=== PATIENT | male | born 1950 | race Caucasian/White ===

== ENCOUNTER 2016-07-03 12:53 | Emergency (ER) | payer MEDICARE ==
[2016-07-03 16:14] LABS: Hematocrit 41 % (42-52); Hemoglobin 13.2 g/dl (14.0-18.0); Mean Corpuscular HGB Conc 32 g/dl (31-36); Mean Corpuscular Hemoglobin 27 pg (27-31); Mean Corpuscular Volume 86 fL (80-94); Mean Platelet Volume 8 um3 (7.4-10.4); Red Blood Count 4.82 10^6/ul (4.0-5.4); Red Cell Distribution Width 15 % (10.5-15)
[2016-07-03 16:36] LABS: Albumin 4.5 g/dL (3.2-5.2); BUN/Creatinine Ratio 19.6 (8-20); Calcium 9.8 mg/dL (8.6-10.3); EGFR African American 99.6 (>60); EGFR Non-African American 77.4 (>60); Globulin 3.2 g/dL (2-4); Magnesium 1.8 mg/dL (1.9-2.7); Potassium 4.1 mmol/L (3.5-5.0); Total Bilirubin 0.6 mg/dL (0.2-1.0); Total Protein 7.7 g/dL (6.4-8.9)
[2016-07-03] MEDS: NS 0.9% 1000 ML* 2,000 ML IV ONE ×2 (16:53→18:23)
[2016-07-03 19:22] LABS: Budding Yeast Present (Absent); Urine Bacteria Absent (Absent); Urine Bilirubin Negative (Negative); Urine Glucose 1+(50 mg/dL) (Negative); Urine Nitrite Negative (Negative)
[2016-07-03] MEDS ORDERED: Albuterol/Ipratropium NEB.SOL* Albuterol 2.5 MG/Ipratropium 0.5 MG 3 ML INH ONE (19:32)
[2016-07-03] MEDS ORDERED: Sulfamethox/Trimethoprim DS 800/160* TAB PO ONE ×2 (19:39)
--- NOTE | 2016-07-03 19:49 | ED ---
Abhay Kwong Alok, scribed for Garry Stevenson MD on 07/03/16 at 1544 . Throat Pain/Nasal Congestion - HPI Summary HPI Summary: 66 y/o male presents to ED and c/o throat pain bilaterally starting yesterday at about 10:[address] Pt notes he experienced dysphagia due to soreness in his throat, though pain has subsided since. Pt also notes bright red hematochezia for the last three days, as well as feeling diaphoretic. Pt also notes some cramping abdominal pain and dysuria for the last month. Denies epigastric pain. Denies any dizziness. Pt's reports elevated BG >300 in the last several days, and states that his normal is usually in the 100s. Pt also notes he takes antacids for GERD, has a hx of hemorrhoids and DM, and has had a stomach stent in the past, but denies being on blood thinners and has no hx of ulcers. - History of Current Complaint Chief Complaint: EDGeneral Time Seen by Provider: 07/03/16 15:24 Hx Obtained From: Patient Onset/Duration: Gradual Onset, Lasting Hours, Resolved Severity: Moderate Associated Signs And Symptoms: Positive: Dysphagia Cough: None - Allergies/Home Medications Allergies/Adverse Reactions: Allergies Allergy/AdvReac Type Severity Reaction Status Date / Time Niacin Allergy Hives Verified 12/30/15 19:53 Azithromycin AdvReac Mild Itching Verified 10/03/14 16:15 PMH/Surg Hx/FS Hx/Imm Hx Endocrine/Hematology History: Reports: Hx Anticoagulant Therapy - 81 MG PO ASA, Hx Diabetes Denies: Hx Thyroid Disease Cardiovascular History: Reports: Hx Aneurysm - AAA with stent, Hx Angina, Hx Coronary Artery Disease, Hx Hypercholesterolemia - HLD, Hx Hypertension, Other Cardiovascular Problems/Disorders - ATHEROSCLEROSIS Respiratory History: Reports: Hx Chronic Obstructive Pulmonary Disease (COPD) Denies: Hx Asthma, Other Respiratory Problems/Disorders GI History: Reports: Hx Gastroesophageal Reflux Disease, Hx Hiatal Hernia Denies: Hx Ulcer History: Reports: Other Problems/Disorders - hx bladder CA Sensory History: Denies: Hx Contacts or Glasses Opthamlomology History: Denies: Hx Contacts or Glasses Neurological History: Reports: Hx Migraine Psychiatric History: Reports: Hx Anxiety, Hx Depression - Cancer History Cancer Type, Location and Year: bladder cancer - chemo - 2009 Hx Chemotherapy: Yes - BCG pt did not tolerate so it was d/c'd - Surgical History Surgery Procedure, Year, and Place: cabg x 4 vessels 2008. AAA repair with stent placement 2008. Bilateral inguinal hernia repair. Left eye surgery to repair hanging skin. SCC EXCISION RIGHT NOSE Hx Anesthesia Reactions: No - Immunization History Date of Tetanus Vaccine: Unk Date of Influenza Vaccine: Fall 2013 Infectious Disease History: No Infectious Disease History: Denies: Hx Clostridium Difficile, Hx Hepatitis, Hx Human Immunodeficiency Virus (HIV), Hx of Known/Suspected MRSA, Hx Shingles, Hx Tuberculosis, Hx Known/ Suspected VRE, Hx Known/Suspected VRSA, History Other Infectious Disease, Traveled Outside the [place] in Last 30 Days - Family History Known Family History: Positive: Cardiac Disease, Other - CANCER - Social History Alcohol Use: None Substance Use Type: Reports: None Smoking Status (MU): Former Smoker Type: Cigarettes Amount Used/How Often: 35+ years, 1ppd Have You Smoked in the Last Year: No Review of Systems Positive: Skin Diaphoresis. Negative: Fever Positive: Sore Throat, Other - throat swelling Positive: Abdominal Pain - "cramping", Other - hematochezia Positive: dysuria All Other Systems Reviewed And Are Negative: Yes Physical Exam - Summary Physical Exam Summary: General: Well-appearing, no pain distress Skin: Warm, color reflects adequate perfusion, dry Head/Face: Normal Eyes: EOMI, KWADWO ENT: Normal Neck: Supple, nontender Resp: CTA, breath present Cardio: RRR Abd: Nontender, soft, no external hemorrhoids or blood surrounding the anus visualized Bowel: Present Misc: Normal; strength/ROM intact Neuro: Normal; sens/mot intact, A&Ox3 Psych: Affect/mood appropriate Triage Information Reviewed: Yes Vital Signs On Initial Exam: Initial Vitals Temp Pulse Resp BP Pulse Ox 98.6 F 65 20 159/69 98 07/03/16 12:59 07/03/16 12:59 07/03/16 12:59 07/03/16 12:59 07/03/16 12:59 Vital Signs Reviewed: Yes - [place] Coma Scale Coma Scale Total: 15 Diagnostics - Vital Signs Vital Signs Temp Pulse Resp BP Pulse Ox 07/03/16 15:00 77 22 159/81 95 07/03/16 14:33 79 24 96 07/03/16 14:32 157/79 02/22/17 13:51 99.0 F 78 16 147/72 94 07/03/16 12:59 98.6 F 65 20 159/69 98 - Laboratory Lab Results: Lab Results 07/03/16 07/03/16 07/03/16 Range/Units 16:00 16:00 16:00 WBC 7.0 (3.5-10.8) 10^3/ul RBC 4.82 (4.0-5.4) 10^6/ul Hgb 13.2 L (14.0-18.0) g/dl Hct 41 L (42-52) % MCV 86 (80-94) fL MCH 27 (27-31) pg MCHC 32 (31-36) g/dl RDW 15 (10.5-15) % Plt Count 274 (150-450) 10^3/ul MPV 8 (7.4-10.4) um3 Neut % (Auto) 77.0 (38-83) % Lymph % (Auto) 9.7 L (25-47) % [place] % (Auto) 8.1 (1-9) % Eos % (Auto) 3.1 (0-6) % Baso % (Auto) 2.1 H (0-2) % Absolute Neuts (auto) 5.4 (1.5-7.7) 10^3/ul Absolute Lymphs (auto) 0.7 L (1.0-4.8) 10^3/ul Absolute Monos (auto) 0.6 (0-0.8) 10^3/ul Absolute Eos (auto) 0.2 (0-0.6) 10^3/ul Absolute Basos (auto) 0.1 (0-0.2) 10^3/ul Absolute Nucleated RBC 0 10^3/ul Nucleated RBC % 0 INR (Anticoag Therapy) 1.01 (0.89-1.11) APTT 32.8 (26.0-36.3) seconds Sodium 136 (133-145) mmol/L Potassium 4.1 (3.5-5.0) mmol/L Chloride 100 L (101-111) mmol/L Carbon Dioxide 28 (22-32) mmol/L Anion Gap 8 (2-11) mmol/L BUN 19 (6-24) mg/dL Creatinine 0.97 (0.67-1.17) mg/dL Est GFR ( Amer) 99.6 (>60) Est GFR (Non-Af Amer) 77.4 (>60) BUN/Creatinine Ratio 19.6 (8-20) Glucose 137 H (70-100) mg/dL Calcium 9.8 (8.6-10.3) mg/dL Magnesium 1.8 L (1.9-2.7) mg/dL Total Bilirubin 0.60 (0.2-1.0) mg/dL AST 43 H (13-39) U/L ALT 39 (7-52) U/L Alkaline Phosphatase 84 (34-104) U/L Total Creatine Kinase 99 (10-223) U/L Troponin I 0.00 (<0.04) ng/mL B-Natriuretic Peptide ( - 100) pg/mL Total Protein 7.7 (6.4-8.9) g/dL Albumin 4.5 (3.2-5.2) g/dL Globulin 3.2 (2-4) g/dL Albumin/Globulin Ratio 1.4 (1-3) Urine Color Urine Appearance Urine pH (5-9) Ur Specific [place] (1.010-1.030) Urine Protein (Negative) Urine Ketones (Negative) Urine Blood (Negative) Urine Nitrate (Negative) Urine Bilirubin (Negative) Urine Urobilinogen (Negative) Ur Leukocyte Esterase (Negative) Urine WBC (Auto) (Absent) Urine RBC (Auto) (Absent) Urine Bacteria (Absent) Urine Yeast (Absent) Urine Glucose (Negative) 07/03/16 07/03/16 Range/Units 16:00 18:55 WBC (3.5-10.8) 10^3/ul RBC (4.0-5.4) 10^6/ul Hgb (14.0-18.0) g/dl Hct (42-52) % MCV (80-94) fL MCH (27-31) pg MCHC (31-36) g/dl RDW (10.5-15) % Plt Count (150-450) 10^3/ul MPV (7.4-10.4) um3 Neut % (Auto) (38-83) % Lymph % (Auto) (25-47) % [place] % (Auto) (1-9) % Eos % (Auto) (0-6) % Baso % (Auto) (0-2) % Absolute Neuts (auto) (1.5-7.7) 10^3/ul Absolute Lymphs (auto) (1.0-4.8) 10^3/ul Absolute Monos (auto) (0-0.8) 10^3/ul Absolute Eos (auto) (0-0.6) 10^3/ul Absolute Basos (auto) (0-0.2) 10^3/ul Absolute Nucleated RBC 10^3/ul Nucleated RBC % INR (Anticoag Therapy) (0.89-1.11) APTT (26.0-36.3) seconds Sodium (133-145) mmol/L Potassium (3.5-5.0) mmol/L Chloride (101-111) mmol/L Carbon Dioxide (22-32) mmol/L Anion Gap (2-11) mmol/L BUN (6-24) mg/dL Creatinine (0.67-1.17) mg/dL Est GFR ( Amer) (>60) Est GFR (Non-Af Amer) (>60) BUN/Creatinine Ratio (8-20) Glucose (70-100) mg/dL Calcium (8.6-10.3) mg/dL Magnesium (1.9-2.7) mg/dL Total Bilirubin (0.2-1.0) mg/dL AST (13-39) U/L ALT (7-52) U/L Alkaline Phosphatase (34-104) U/L Total Creatine Kinase (10-223) U/L Troponin I (<0.04) ng/mL B-Natriuretic Peptide 42 ( - 100) pg/mL Total Protein (6.4-8.9) g/dL Albumin (3.2-5.2) g/dL Globulin (2-4) g/dL Albumin/Globulin Ratio (1-3) Urine Color Yellow Urine Appearance Cloudy Urine pH 6.0 (5-9) Ur Specific [place] 1.019 (1.010-1.030) Urine Protein 1+(30 mg/dl) H (Negative) Urine Ketones Negative (Negative) Urine Blood Negative (Negative) Urine Nitrate Negative (Negative) Urine Bilirubin Negative (Negative) Urine Urobilinogen Negative (Negative) Ur Leukocyte Esterase 2+ H (Negative) Urine WBC (Auto) 3+(>20/hpf) H (Absent) Urine RBC (Auto) 2+(6-10/hpf) H (Absent) Urine Bacteria Absent (Absent) Urine Yeast Present H (Absent) Urine Glucose 1+(50 mg/dl) H (Negative) Result Diagrams: 07/03/16 16:00 07/03/16 16:00 Lab Statement: Any lab studies that have been ordered have been reviewed, and results considered in the medical decision making process. - EKG 13:06 Cardiac Rate: NL EKG Rhythm: Sinus Rhythm Ectopy: None EKG Interpretation: TWI in the lateral leads EENT Course/Dx - Course Assessment/Plan: NO BMS IN ED. FEELS WELL IN ED. DISCUSSED RESULTS WITH PATIENT. NL BP IN ED. RX BACTRIM FOR UTI. F/U PMD, RETURN IF WORSE. DISCHARGE HOME STABLE. - Diagnoses Provider Diagnoses: GI bleed, UTI (urinary tract infection) Discharge - Discharge Plan Condition: Stable Disposition: HOME Prescriptions: Sulfamethox/Trimethoprim DS* [Bactrim DS 800/160 TAB*] 1 tab PO BID #18 tab Patient Education Materials: Gastrointestinal Bleeding (ED), Urinary Tract Infection in Men (ED) Referrals: Edyta Best [Primary Care Provider] - Additional Instructions: FOLLOW UP WITH YOUR PRIMARY CARE DOCTOR. RETURN TO THE EMERGENCY DEPARTMENT FOR ANY WORSENING OF YOUR CONDITION; INCREASED BLEEDING, YOU FEEL LIKE YOU ARE GOING TO PASS OUT, YOU FEEL ILL OR QUESTIONS OR CONCERNS. The documentation as recorded by the Abhay rangel Alok accurately reflects the service I personally performed and the decisions made by me, Garry Stevenson MD.
[2016-07-03 20:28] VITALS: BP 117/60
== END 2016-07-03 20:27 | disposition home or self-care (01) ==
LOC: ED 12:53
DX: K92.2 Gastrointestinal hemorrhage, unspecified (principal); R13.10 Dysphagia, unspecified; N39.0 Urinary tract infection, site not specified; Z87.891 Personal history of nicotine dependence; R10.9 Unspecified abdominal pain; R30.0 Dysuria
CPT/HCPCS: 36415; 80053; 81003; 81015; 82272; 82550; 83735; 83880; 84484; 85025; 85610; 85730; 87086; 93005; 99283; A9270-GY

== ENCOUNTER 2017-05-30 07:56 | Emergency (ER) | payer MEDICARE ==
[2017-05-30 10:16] VITALS: BP 125/79
--- NOTE | 2017-05-30 16:15 | ED ---
Kary Kwong Julia, scribed for Zeny Coughlin MD on 05/30/17 at 0954 . Complex/Multi-Sys Presentation - HPI Summary HPI Summary: This patient is a 67 year old M presenting to [facility] complaining of external hemorrhoids beginning at 05/23/17. Patient reports rectal pain. The patient rates the pain 8/10 in severity. Patient denies constipation, headache, double or blurry vision, back pain, abdominal pain, ear ache, CP, SOB, or hematuria. He states this is the first instance of prolapsing hemorrhoids and that he has no yet seen a surgeon. He reports dysuria, but is not a new symptom. Patient has history of DM, HTN, and hemorrhoids. - History Of Current Complaint Chief Complaint: EDRectalPain Time Seen by Provider: 05/30/17 08:33 Hx Obtained From: Patient Onset/Duration: Lasting Days Timing: Constant Severity Currently: Moderate - 8/10 Location: Pain At: - rectum Associated Signs And Symptoms: Positive: Other - hemorrhoids Related History: Similar Episode/Diagnosed As: - hemorrhoids - Allergies/Home Medications Allergies/Adverse Reactions: Allergies Allergy/AdvReac Type Severity Reaction Status Date / Time Niacin Allergy Hives Verified 05/30/17 08:05 Azithromycin AdvReac Mild Itching Verified 05/30/17 08:05 PMH/Surg Hx/FS Hx/Imm Hx Endocrine/Hematology History: Reports: Hx Anticoagulant Therapy - 81 MG PO ASA, Hx Diabetes Denies: Hx Thyroid Disease Cardiovascular History: Reports: Hx Aneurysm - AAA with stent, Hx Angina, Hx Coronary Artery Disease, Hx Hypercholesterolemia - HLD, Hx Hypertension, Other Cardiovascular Problems/Disorders - ATHEROSCLEROSIS Respiratory History: Reports: Hx Chronic Obstructive Pulmonary Disease (COPD) Denies: Hx Asthma, Other Respiratory Problems/Disorders GI History: Reports: Hx Gastroesophageal Reflux Disease, Hx Hiatal Hernia Denies: Hx Ulcer History: Reports: Other Problems/Disorders - hx bladder CA Sensory History: Denies: Hx Contacts or Glasses Opthamlomology History: Denies: Hx Contacts or Glasses Neurological History: Reports: Hx Migraine Psychiatric History: Reports: Hx Anxiety, Hx Depression - Cancer History Cancer Type, Location and Year: bladder cancer - chemo - 2009 Hx Chemotherapy: Yes - BCG pt did not tolerate so it was d/c'd - Surgical History Surgery Procedure, Year, and Place: cabg x 4 vessels 2008. AAA repair with stent placement 2008. Bilateral inguinal hernia repair. Left eye surgery to repair hanging skin. SCC EXCISION RIGHT NOSE Hx Anesthesia Reactions: No - Immunization History Date of Tetanus Vaccine: Unk Date of Influenza Vaccine: Fall 2013 Infectious Disease History: No Infectious Disease History: Denies: Hx Clostridium Difficile, Hx Hepatitis, Hx Human Immunodeficiency Virus (HIV), Hx of Known/Suspected MRSA, Hx Shingles, Hx Tuberculosis, Hx Known/ Suspected VRE, Hx Known/Suspected VRSA, History Other Infectious Disease, Traveled Outside the [place] in Last 30 Days - Family History Known Family History: Positive: Cardiac Disease, Other - CANCER - Social History Alcohol Use: None Substance Use Type: Reports: None Smoking Status (MU): Former Smoker Type: Cigarettes Amount Used/How Often: 35+ years, 1ppd Have You Smoked in the Last Year: No Review of Systems Negative: Blurred Vision Negative: Ear Ache Negative: Chest Pain Negative: Shortness Of Breath Positive: Other - external hemorrhoids and rectal pain. Negative: Abdominal Pain Positive: dysuria. Negative: hematuria Musculoskeletal: Negative Negative: Headache All Other Systems Reviewed And Are Negative: No Physical Exam - Summary Physical Exam Summary: Appearance: Alert, conversive, nontoxic appearing Skin: Warm, dry, no mottling, no rashes, no contusions HEENT: EOMI, PERRL, moist mucous membranes Neck: No masses on the neck, supple Respiratory: Clear to auscultation, breath sounds present, no rales, no rhonchi , no wheezes Cardiovascular: RRR, pulses are symmetrical in both lower and upper extremities Abdomen: Soft, non-tender Bowel Sounds: Present Musculoskeletal: No CVA tenderness, no obvious deformity, moving all extremities in a grossly normal manner, two non thrombosed hemorrhoids exquisitely tender, rectal tenderness Neurological: A&Ox3, CN II-XII Intact, moving all extremities symmetrically Psychiatric: Normal affect and mood Vital Signs On Initial Exam: Initial Vitals Temp Pulse Resp BP Pulse Ox 98.3 F 66 17 161/90 96 05/30/17 08:05 05/30/17 08:05 05/30/17 08:05 05/30/17 08:05 05/30/17 08:05 - Cristela Coma Scale Coma Scale Total: 15 Diagnostics - Vital Signs Vital Signs Temp Pulse Resp BP Pulse Ox 05/30/17 08:05 98.3 F 66 17 161/90 96 - Laboratory Lab Statement: Any lab studies that have been ordered have been reviewed, and results considered in the medical decision making process. Complex Multi-Symp Course/Dx Course Of Treatment: Patient presented with rectal pain and two prolapsed hemorrhoids, but is otherwise non-emergent. Patient was given a prescirption for topical Lidocane for pain and has been instructed to follow up with Dr. Do and use stool softeners to avoid constipation, and tylenol for pain. - Diagnoses Provider Diagnoses: Hemorrhoids Discharge - Discharge Plan Condition: Stable Disposition: HOME Prescriptions: Lidocaine 4% GEL* [Topicaine 4% GEL*] 1 applic TOPICAL SEE INSTRUCTIONS #1 tube Patient Education Materials: Hemorrhoids (DC) Referrals: Damion Do MD [Medical Doctor] - Edyta Best [Primary Care Provider] - Additional Instructions: Please call Dr. Do for a follow up appt regarding your hemorrhoids. use stool softeners during this painful period of hemorroids. You want to avoid constipation. use Tucks or Preparation H for pain relief. you may also apply lidocaine jelly to the area for pain relief. Take tylenol and motrin for pain. The documentation as recorded by the Kary rangel Julia accurately reflects the service I personally performed and the decisions made by , Zeny Coughlin MD.
== END 2017-05-30 10:13 | disposition home or self-care (01) ==
LOC: ED 07:56
DX: K64.9 Unspecified hemorrhoids (principal); R30.0 Dysuria; Z86.79 Personal history of other diseases of the circulatory system; Z86.39 Personal history of other endocrine, nutritional and metabolic disease; Z79.01 Long term (current) use of anticoagulants; Z87.891 Personal history of nicotine dependence
CPT/HCPCS: 99282

== ENCOUNTER 2017-06-24 12:59 | Emergency (ER) | payer MEDICARE ==
[2017-06-24 16:19] LABS: Hematocrit 37 % (42-52); Hemoglobin 12.5 g/dl (14.0-18.0); Mean Corpuscular HGB Conc 34 g/dl (31-36); Mean Corpuscular Hemoglobin 29 pg (27-31); Mean Corpuscular Volume 87 fL (80-94); Mean Platelet Volume 8 um3 (7.4-10.4); Platelet Count 177 10^3/ul (150-450); Red Blood Count 4.25 10^6/ul (4.0-5.4); Red Cell Distribution Width 15 % (10.5-15); White Blood Count 4.9 10^3/ul (3.5-10.8)
--- NOTE | 2017-06-24 16:21 | ED ---
GI/ HPI - HPI Summary HPI Summary: 67-year-old male presents with possible inguinal hernia on his left side for past 2 weeks. He states the pain is worse when he ambulates or when he tries to lift something. He has history of bilateral inguinal hernia repairs with mesh many years ago. He denies any nausea or vomiting. He denies any diarrhea or blood in his stool. He states the pain comes and goes. He hasn't tried anything for his pain. He denies any groin pain. He denies any penile discharge. He denies any fever. He has not tried anything for his pain. - History of Current Complaint Chief Complaint: EDAbdPain Time Seen by Provider: 06/24/17 15:33 Stated Complaint: POSSIBLE HERNIA Pain Intensity: 4 - Allergy/Home Medications Allergies/Adverse Reactions: Allergies Allergy/AdvReac Type Severity Reaction Status Date / Time MS Niacin [Niacin] Allergy Hives Verified 05/30/17 08:05 MS Azithromycin AdvReac Mild Itching Verified 05/30/17 08:05 [Azithromycin] PMH/Surg Hx/FS Hx/Imm Hx Endocrine/Hematology History: Reports: Hx Anticoagulant Therapy - 81 MG PO ASA, Hx Diabetes Denies: Hx Thyroid Disease Cardiovascular History: Reports: Hx Aneurysm - AAA with stent, Hx Angina, Hx Coronary Artery Disease, Hx Hypercholesterolemia - HLD, Hx Hypertension, Other Cardiovascular Problems/Disorders - ATHEROSCLEROSIS Respiratory History: Reports: Hx Chronic Obstructive Pulmonary Disease (COPD) Denies: Hx Asthma, Other Respiratory Problems/Disorders GI History: Reports: Hx Gastroesophageal Reflux Disease, Hx Hiatal Hernia Denies: Hx Ulcer History: Reports: Other Problems/Disorders - hx bladder CA Sensory History: Denies: Hx Contacts or Glasses Opthamlomology History: Denies: Hx Contacts or Glasses Neurological History: Reports: Hx Migraine Psychiatric History: Reports: Hx Anxiety, Hx Depression - Cancer History Cancer Type, Location and Year: bladder cancer - chemo - 2009 Hx Chemotherapy: Yes - BCG pt did not tolerate so it was d/c'd - Surgical History Surgery Procedure, Year, and Place: cabg x 4 vessels 2008. AAA repair with stent placement 2008. Bilateral inguinal hernia repair. Left eye surgery to repair hanging skin. SCC EXCISION RIGHT NOSE Hx Anesthesia Reactions: No - Immunization History Date of Tetanus Vaccine: Unk Date of Influenza Vaccine: Fall 2013 Infectious Disease History: No Infectious Disease History: Denies: Hx Clostridium Difficile, Hx Hepatitis, Hx Human Immunodeficiency Virus (HIV), Hx of Known/Suspected MRSA, Hx Shingles, Hx Tuberculosis, Hx Known/ Suspected VRE, Hx Known/Suspected VRSA, History Other Infectious Disease, Traveled Outside the [place] in Last 30 Days - Family History Known Family History: Positive: Cardiac Disease, Other - CANCER - Social History Alcohol Use: None Substance Use Type: Reports: None Smoking Status (MU): Former Smoker Type: Cigarettes Amount Used/How Often: 35+ years, 1ppd Have You Smoked in the Last Year: No Review of Systems Negative: Fever Negative: Chest Pain Negative: Shortness Of Breath Positive: Abdominal Pain. Negative: Vomiting, Diarrhea, Nausea All Other Systems Reviewed And Are Negative: Yes Physical Exam Triage Information Reviewed: Yes Vital Signs On Initial Exam: Initial Vitals Temp Pulse Resp BP Pulse Ox 98.0 F 66 16 146/69 96 06/24/17 13:02 06/24/17 13:02 06/24/17 13:02 06/24/17 13:02 06/24/17 13:02 Vital Signs Reviewed: Yes Appearance: Positive: Well-Appearing Skin: Positive: Warm, Dry Head/Face: Positive: Normal Head/Face Inspection Eyes: Positive: Normal, Conjunctiva Clear Respiratory/Lung Sounds: Positive: Clear to Auscultation, Breath Sounds Present Cardiovascular: Positive: Normal, RRR Abdomen Description: Positive: Nontender, Soft, Other: - left inguinal tenderness, no hernia or mass felt Bowel Sounds: Positive: Present Male Genital Exam: Positive: normal genitalia, no hernia Diagnostics - Vital Signs Vital Signs Temp Pulse Resp BP Pulse Ox 06/24/17 14:35 97.5 F 67 20 151/66 92 06/24/17 13:02 98.0 F 66 16 146/69 96 - Laboratory Lab Results: Lab Results 06/24/17 Range/Units 16:00 WBC 4.9 (3.5-10.8) 10^3/ul RBC 4.25 (4.0-5.4) 10^6/ul Hgb 12.5 L (14.0-18.0) g/dl Hct 37 L (42-52) % MCV 87 (80-94) fL MCH 29 (27-31) pg MCHC 34 (31-36) g/dl RDW 15 (10.5-15) % Plt Count 177 (150-450) 10^3/ul MPV 8 (7.4-10.4) um3 Result Diagrams: 06/24/17 16:00 06/24/17 16:00 Lab Statement: Any lab studies that have been ordered have been reviewed, and results considered in the medical decision making process. - CT abd CT Interpretation: Positive (See Comments) - 1. There are bilateral fat- containing hernias but no significant bowel hernia is visualized. 2. There is been interval increase in the size of the infrarenal abdominal aortic aneurysm now measuring 5.6 x 5.7 cm in the axial plane, increased from 4.2 x 4.7 cm on the August 21, 2015 CT examination. The portal venous and delayed phase imaging suggest but do not prove a type II endoleak. Either CT aortography or catheter aortography are required for superior characterization on a nonemergent basis. 3. Hepatomegaly with likely hepatic steatosis. 4. Additional chronic and degenerative changes described in the body the report. CT Interpretation Completed By: Radiologist [facility] Course/Dx - Course Course Of Treatment: 67-year-old male presents with possible inguinal hernia on his left side for past 2 weeks. He states the pain is worse when he ambulates or when he tries to lift something. He has history of bilateral inguinal hernia repairs with mesh many years ago. He denies any nausea or vomiting. He denies any diarrhea or blood in his stool. He states the pain comes and goes. He hasn't tried anything for his pain. He denies any groin pain. He denies any penile discharge. He denies any fever. He has not tried anything for his pain. on exam tenderness left inguinal region. no hernia felt. labs wnl except for AST. will get CT due to mesh. CT shows bilateral fat hernias. will have follow up with surgery. patient understand and agrees with plan. - Diagnoses Differential Diagnoses - Male: Diverticulosis, Incarcerated Hernia, Urinary Tract Infection Provider Diagnoses: Hernia Discharge - Discharge Plan Condition: Good Disposition: HOME Patient Education Materials: Inguinal Hernia (ED) Referrals: Edyta Best [Primary Care Provider] - Christopher Velasquez MD [Medical Doctor] - Additional Instructions: Follow up with surgery Return to ED if develop severe abdominal pain or any new or worsening symptoms
[2017-06-24 16:35] LABS: EGFR Non-African American 72.8 (>60)
[2017-06-24] MEDS ORDERED: Iodixanol* (CONTRAST) 320 MG/ML 100 ML SDV IV ONE (18:01)
--- NOTE | 2017-06-24 20:00 | RAD ---
CLINICAL HISTORY: Left inguinal pain. Relevant surgical history AAA endograft stent placement and bilateral inguinal hernia repair. COMPARISON: CT abdomen pelvis August 21, 2015 TECHNIQUE: Contrast enhanced CT examination of the abdomen and pelvis from the lung bases through the initial tuberosities. The patient received 133 mL Visipaque 320 intravenously prior to imaging.The patient received oral contrast as well prior to imaging. FINDINGS: VISUALIZED LUNG BASES: The visualized lung bases are grossly clear. There is no pleural effusion. ABDOMEN AND PELVIS: The enlarged and homogenously hypodense liver measures 24.6 cm in greatest cephalocaudal dimension. There are scattered subcentimeter hypoattenuating foci, for example in the right middle lobe measuring 9 mm (image 22) that appear similar to the most recent CT examination.. The spleen, pancreas and adrenal glands are grossly normal in appearance. The gallbladder is normal. The kidneys are normal in appearance without focal mass, calcification or signs of hydronephrosis. There is a bladder diverticulum along the right lateral margin of the urinary bladder. The urinary bladder is somewhat irregular and wall thickness. The oral contrast has progressed as far as the distal small bowel. The small and large bowel are not distended. The patient's normal appendix is identified in the right lower quadrant measuring up to 5 mm in diameter (axial image 71). There is no gross retroperitoneal or mesenteric lymphadenopathy. There are bilateral fat-containing hernias. There is an abdominal aortic stent graft in place. The infrarenal abdominal aortic aneurysm measures 5.6 x 5.7 cm in the axial plane increased from 4.2 x 4.7 cm on the August 21, 2015 CT examination. There is hyperattenuating material in the aneurysmal sac that may be similar to the previous CT examination. The appearance on the delayed phase images shows the areas of hyperdensity becoming more evenly distributed in the aneurysmal sac. Degenerative changes include multilevel loss of intervertebral disc height involving the lower thoracic and lumbar spine.There are no sinister bone lesions. IMPRESSION: 1. There are bilateral fat-containing hernias but no significant bowel hernia is visualized. 2. There is been interval increase in the size of the infrarenal abdominal aortic aneurysm now measuring 5.6 x 5.7 cm in the axial plane, increased from 4.2 x 4.7 cm on the August 21, 2015 CT examination. The portal venous and delayed phase imaging suggest but do not prove a type II endoleak. Either CT aortography or catheter aortography are required for superior characterization on a nonemergent basis. 3. Hepatomegaly with likely hepatic steatosis. 4. Additional chronic and degenerative changes described in the body the report.
[2017-06-24 20:13] VITALS: BP 178/87
== END 2017-06-24 20:06 | disposition home or self-care (01) ==
LOC: ED 12:59
DX: K40.90 Unilateral inguinal hernia, without obstruction or gangrene, not specified as recurrent (principal)
CPT/HCPCS: 36415; 74177; 80053; 83605; 85027; 96374; 99282; Q9967

== ENCOUNTER 2017-08-01 15:07 | Emergency (ER) | payer MEDICARE ==
[2017-08-01] MEDS ORDERED: Morphine INJ* 4 MG/ML 1 ML SYRINGE (NEW SYRINGE VERSION) IV ONE (17:25)
[2017-08-01] MEDS ORDERED: Ondansetron INJ* 2 MG/ML VIAL IV ONE (17:26)
[2017-08-01 17:59] LABS: ABS Basophils 0 10^3/ul (0-0.2); ABS Eosinophils 0.2 10^3/ul (0-0.6); ABS Lymphocytes 0.9 10^3/ul (1.0-4.8); ABS Monocytes 0.4 10^3/ul (0-0.8); ABS Neutrophils 3.7 10^3/ul (1.5-7.7); ABS Nucleated RBC 0 10^3/ul; Eosinophil % 4.4 % (0-6); Hematocrit 37 % (42-52); Hemoglobin 12.5 g/dl (14.0-18.0); Lymphocyte % 16.6 % (25-47); Mean Corpuscular HGB Conc 33 g/dl (31-36); Mean Corpuscular Hemoglobin 29 pg (27-31); Mean Corpuscular Volume 87 fL (80-94); Nucleated Red Blood Cells % 0.1; Platelet Count 201 10^3/ul (150-450); Red Blood Count 4.31 10^6/ul (4.0-5.4); Red Cell Distribution Width 15 % (10.5-15); White Blood Count 5.3 10^3/ul (3.5-10.8)
[2017-08-01 18:12] LABS: INR 1.02 (0.77-1.02)
[2017-08-01 18:20] LABS: EGFR Non-African American 55.6 (>60)
[2017-08-01] MEDS ORDERED: Iodixanol* (CONTRAST) 320 MG/ML 100 ML SDV IV ONE (18:31)
--- NOTE | 2017-08-01 19:10 | RAD ---
HISTORY: Blunt trauma to the abdomen, subacute trauma COMPARISONS: June 24, 2017, August 21, 2015 TECHNIQUE: Multiple contiguous axial CT scans were obtained of the chest, abdomen, and pelvis after the administration of intravenous contrast. Coronal and sagittal multiplanar reformations are submitted for review.. Oral contrast was not administered. Delayed images were obtained through the abdomen and pelvis. FINDINGS: CHEST NECK AND THYROID: The lower neck and thyroid are unremarkable. CHEST WALL: There is no lower cervical, axillary, or supraclavicular lymphadenopathy by size criteria. HEART AND PERICARDIUM: Coronary and valvular cardiac calcifications are noted. AORTA AND PULMONARY VASCULATURE: The aorta and pulmonary vasculature are normal. MEDIASTINUM: There is no mediastinal lymphadenopathy by size criteria. ROZINA: There is no hilar lymphadenopathy by size criteria. AIRWAY AND ESOPHAGUS: The airway is unremarkable, without endobronchial filling defect. The esophagus is grossly normal. LUNG PARENCHYMA: There are small pulmonary parenchymal nodules demonstrating two-year stability consistent with benign nodules. PLEURA: No pleural abnormalities are noted. BONES AND SOFT TISSUES: The patient is status post median sternotomy. Mild degenerative changes are noted. ABDOMEN/PELVIS: LIVER: The liver is diffusely low in attenuation compared to the spleen. There are no focal hepatic parenchymal masses. Liver is enlarged measuring 24 centers in long axis. Simple hepatic cysts are noted. BILE DUCTS: There is no intrahepatic or extrahepatic biliary dilatation. GALLBLADDER: A gallstone is noted. There is no pericholecystic inflammatory change. PANCREAS: The pancreas is normal, without mass or ductal dilatation. SPLEEN: Normal in size and appearance. UPPER GI TRACT: Evaluation of the gastrointestinal tract is limited by incomplete gastric distention. There is a 2 cm diverticulum of the second stage of the duodenum. SMALL BOWEL & MESENTERY: The small bowel is normal in contour, course, and caliber. There is no obstruction or dilatation. COLON: The colon is normal in contour, course, caliber. There is no pericolonic inflammatory change. ADRENALS: Normal bilaterally. KIDNEYS: The kidneys are normal in shape, size, contour, and axis. There is no hydronephrosis or nephrolithiasis. BLADDER: Again noted is bladder wall thickening with a diverticulum of the right bladder. PELVIC ORGANS: The prostate gland is mildly enlarged. AORTA: The patient is status post aortic stent graft. There is residual aneurysm sac with contrast enhancement consistent with endoleak. This is similar in size to the June 24, 2012 examination. IVC: Unremarkable LYMPH NODES: There is no lymphadenopathy by size criteria. ABDOMINAL WALL: There is a fat-containing ventral hernia. There are fat-containing inguinal hernias bilaterally BONES AND SOFT TISSUES: Mild degenerative changes are noted. OTHER: There is no active arterial extravasation. IMPRESSION: 1. ATHEROSCLEROSIS. 2. CHOLELITHIASIS. 3. STATUS POST AORTIC STENT GRAFT WITH AORTIC ENDOLEAK. THE RESIDUAL ANEURYSM SAC IS STABLE FROM JUNE 24, 2017 4. DIVERTICULUM OF THE SECOND STAGE OF THE DUODENUM. 5. AGAIN NOTED IS BLADDER WALL THICKENING WITH A DIVERTICULUM OF THE BLADDER. 6. HEPATOMEGALY WITH FATTY INFILTRATION OF LIVER. 7. FAT-CONTAINING VENTRAL AND INGUINAL HERNIAS. 8. NO ACUTE CT PATHOLOGY OF THE VISUALIZED CHEST, ABDOMEN, OR PELVIS.
[2017-08-01] MEDS ORDERED: oxyCODONE/Acetamin 5/325 MG* TAB PO ONE (19:39)
[2017-08-01 19:53] VITALS: BP 144/65
--- NOTE | 2017-08-01 19:55 | ED ---
Stas Kwong Tiffany, scribed for Joseph Lugo on 08/01/17 at 1734 . Complex/Multi-Sys Presentation - HPI Summary HPI Summary: The patient is a 67 year old M presenting to [facility] complains of right chest pain and RUQ pain s/p falling on concrete one week ago. The patient rates the pain 8/10 in severity. Symptoms aggravated by touch. Symptoms alleviated by nothing. Denies dysuria and skin changes. Took ibuprofen today without relief. Takes Aspirin every day. - History Of Current Complaint Chief Complaint: EDChestWallPain Time Seen by Provider: 08/01/17 17:18 Hx Obtained From: Patient Onset/Duration: Lasting Weeks - 1 week, Still Present Timing: Constant Severity Currently: Moderate Location: Pain At: - Right chest, RUQ Aggravating Factor(s): Nothing Alleviating Factor(s): Nothing Associated Signs And Symptoms: Positive: Recent Trauma - Fell on concrete one week ago, Other - NEGATIVE: skin changes. Negative: Dysuria - Allergies/Home Medications Allergies/Adverse Reactions: Allergies Allergy/AdvReac Type Severity Reaction Status Date / Time azithromycin Allergy Itching Verified 08/01/17 15:11 niacin Allergy Hives Verified 08/01/17 15:11 PMH/Surg Hx/FS Hx/Imm Hx Previously Healthy: No Endocrine/Hematology History: Reports: Hx Anticoagulant Therapy - 81 MG PO ASA, Hx Diabetes Denies: Hx Thyroid Disease Cardiovascular History: Reports: Hx Aneurysm - AAA with stent, Hx Angina, Hx Coronary Artery Disease, Hx Hypercholesterolemia - HLD, Hx Hypertension, Other Cardiovascular Problems/Disorders - ATHEROSCLEROSIS Respiratory History: Reports: Hx Chronic Obstructive Pulmonary Disease (COPD) Denies: Hx Asthma, Other Respiratory Problems/Disorders GI History: Reports: Hx Gastroesophageal Reflux Disease, Hx Hiatal Hernia Denies: Hx Ulcer History: Reports: Other Problems/Disorders - hx bladder CA Sensory History: Denies: Hx Contacts or Glasses Opthamlomology History: Denies: Hx Contacts or Glasses Neurological History: Reports: Hx Migraine Psychiatric History: Reports: Hx Anxiety, Hx Depression - Cancer History Cancer Type, Location and Year: bladder cancer - chemo - 2009 Hx Chemotherapy: Yes - BCG pt did not tolerate so it was d/c'd - Surgical History Surgery Procedure, Year, and Place: cabg x 4 vessels 2008. AAA repair with stent placement 2008. Bilateral inguinal hernia repair. Left eye surgery to repair hanging skin. SCC EXCISION RIGHT NOSE Hx Anesthesia Reactions: No - Immunization History Date of Tetanus Vaccine: Unk Date of Influenza Vaccine: Fall 2013 Infectious Disease History: No Infectious Disease History: Denies: Hx Clostridium Difficile, Hx Hepatitis, Hx Human Immunodeficiency Virus (HIV), Hx of Known/Suspected MRSA, Hx Shingles, Hx Tuberculosis, Hx Known/ Suspected VRE, Hx Known/Suspected VRSA, History Other Infectious Disease, Traveled Outside the [place] in Last 30 Days - Family History Known Family History: Positive: Cardiac Disease, Other - CANCER - Social History Alcohol Use: None Hx Substance Use: No Substance Use Type: Reports: None Hx Tobacco Use: Yes Smoking Status (MU): Former Smoker Type: Cigarettes Amount Used/How Often: 35+ years, 1ppd Have You Smoked in the Last Year: No Review of Systems Negative: dysuria Positive: Other - Right-sided chest pain, RUQ pain Skin: Negative - Skin changes All Other Systems Reviewed And Are Negative: Yes Physical Exam - Summary Physical Exam Summary: Appearance: Well appearing, no pain distress Skin: warm, dry, reflects adequate perfusion Head/face: normal Eyes: EOMI, KWADWO ENT: normal Neck: supple, non-tender Chest: Right chest tenderness Respiratory: CTA, breath sounds present Cardiovascular: RRR, pulses symmetrical Abdomen: RUQ tenderness Bowel: present Musculoskeletal: normal, strength/ROM intact Neuro: normal, sensory motor intact, A&Ox3 Triage Information Reviewed: Yes Vital Signs On Initial Exam: Initial Vitals Temp Pulse Resp BP Pulse Ox 98.7 F 70 16 170/78 93 08/01/17 15:12 08/01/17 15:12 08/01/17 15:12 08/01/17 15:12 08/01/17 15:12 Vital Signs Reviewed: Yes Diagnostics - Vital Signs Vital Signs Temp Pulse Resp BP Pulse Ox 08/01/17 15:12 98.7 F 70 16 170/78 93 - Laboratory Lab Results: Lab Results 08/01/17 08/01/17 08/01/17 Range/Units 17:48 17:48 17:48 WBC 5.3 (3.5-10.8) 10^3/ul RBC 4.31 (4.0-5.4) 10^6/ul Hgb 12.5 L (14.0-18.0) g/dl Hct 37 L (42-52) % MCV 87 (80-94) fL MCH 29 (27-31) pg MCHC 33 (31-36) g/dl RDW 15 (10.5-15) % Plt Count 201 (150-450) 10^3/ul MPV 8.0 (7.4-10.4) um3 Neut % (Auto) 69.7 (38-83) % Lymph % (Auto) 16.6 L (25-47) % [place] % (Auto) 8.4 H (0-7) % Eos % (Auto) 4.4 (0-6) % Baso % (Auto) 0.9 (0-2) % Absolute Neuts (auto) 3.7 (1.5-7.7) 10^3/ul Absolute Lymphs (auto) 0.9 L (1.0-4.8) 10^3/ul Absolute Monos (auto) 0.4 (0-0.8) 10^3/ul Absolute Eos (auto) 0.2 (0-0.6) 10^3/ul Absolute Basos (auto) 0 (0-0.2) 10^3/ul Absolute Nucleated RBC 0 10^3/ul Nucleated RBC % 0.1 INR (Anticoag Therapy) 1.02 (0.77-1.02) APTT 35.0 (26.0-36.3) seconds Sodium 137 (133-145) mmol/L Potassium 4.0 (3.5-5.0) mmol/L Chloride 101 (101-111) mmol/L Carbon Dioxide 29 (22-32) mmol/L Anion Gap 7 (2-11) mmol/L BUN 22 (6-24) mg/dL Creatinine 1.29 H (0.67-1.17) mg/dL Est GFR ( Amer) 71.4 (>60) Est GFR (Non-Af Amer) 55.6 (>60) BUN/Creatinine Ratio 17.1 (8-20) Glucose 144 H (70-100) mg/dL Calcium 9.3 (8.6-10.3) mg/dL Total Bilirubin 0.50 (0.2-1.0) mg/dL AST 52 H (13-39) U/L ALT 48 (7-52) U/L Alkaline Phosphatase 74 (34-104) U/L Troponin I 0.00 (<0.04) ng/mL Total Protein 6.9 (6.4-8.9) g/dL Albumin 4.1 (3.2-5.2) g/dL Globulin 2.8 (2-4) g/dL Albumin/Globulin Ratio 1.5 (1-3) Lipase 22 (11.0-82.0) U/L Result Diagrams: 08/01/17 17:48 08/01/17 17:48 Lab Statement: Any lab studies that have been ordered have been reviewed, and results considered in the medical decision making process. - CT Chest/Abd/Pel CT Interpretation Completed By: Radiologist - 1. ATHEROSCLEROSIS. 2. CHOLELITHIASIS. 3. STATUS POST AORTIC STENT GRAFT WITH AORTIC ENDOLEAK. THE RESIDUAL ANEURYSM SAC IS STABLE FROM JUNE 24, 2017 4. DIVERTICULUM OF THE SECOND STAGE OF THE DUODENUM.5. AGAIN NOTED IS BLADDER WALL THICKENING WITH A DIVERTICULUM OF THE BLADDER. 6. HEPATOMEGALY WITH FATTY INFILTRATION OF LIVER. 7. FAT-CONTAINING VENTRAL AND INGUINAL HERNIAS. 8. NO ACUTE CT PATHOLOGY OF THE VISUALIZED CHEST, ABDOMEN, OR PELVIS. ED physician has reviewed this report. Re-Evaluation - Re-Evaluation First Eval Re-Evaluation Time: 19:25 Change: Unchanged Comment: Patient updated on lab and scan results. Discussed discharge. Agreeable to discharge. Complex Multi-Symp Course/Dx Course Of Treatment: 67 y/o M had a fall one week ago, complains of right-sided pain. Labs/CT scan were negative. No signs of acute pathology. Patient will be discharged with prescription and follow up from primary care provider. He is agreeable with this plan. - Diagnoses Differential Diagnoses/HQI/PQRI: Other - fall/contusion chest/fx ribs Provider Diagnoses: Fall, Contusion, Chest wall pain Discharge - Sign-Out/Discharge Documenting (check all that apply): Discharge - Discharge Plan Condition: Stable Disposition: HOME Prescriptions: Ibuprofen TAB* [Motrin TAB* 600 MG] 600 mg PO Q8H PRN #20 tab MDD 3 PRN Reason: Pain Oxycodone HCl/Acetaminophen [Percocet] 1 tab PO TID #12 tab MDD 3 Patient Education Materials: Contusion in Adults (ED), Fall Prevention (ED), Chest Wall Pain (ED) Referrals: Edyta Best [Primary Care Provider] - 3 Days Additional Instructions: Take medication as prescribed. Follow up with your primary care provider in 3 days. Return to the Emergency Department for any new or worsening symptoms. - Billing Disposition and Condition Condition: STABLE Disposition: HOME The documentation as recorded by the Stas rangel Tiffany accurately reflects the service I personally performed and the decisions made by , Joseph Lugo.
== END 2017-08-01 19:51 | disposition home or self-care (01) ==
LOC: ED 15:07
DX: S20.211A Contusion of right front wall of thorax, initial encounter (principal); R10.11 Right upper quadrant pain; R07.89 Other chest pain; Z79.01 Long term (current) use of anticoagulants; Z87.891 Personal history of nicotine dependence; W19.XXXA Unspecified fall, initial encounter; Y92.9 Unspecified place or not applicable
CPT/HCPCS: 36415; 71260; 74177; 80053; 83690; 84484; 85025; 85610; 85730; 96374; 96375; 99282; A9270-GY; J2270; J2405; Q9967

== ENCOUNTER 2017-12-21 17:44 | Inpatient (IN) | payer MEDICARE ==
[2017-12-21] MEDS ORDERED: Aspirin 81 mg CHEW TAB* 81 MG TAB.CHEW PO ONE (17:55)
[2017-12-21] MEDS ORDERED: Albuterol/Ipratropium NEB.SOL* Albuterol 2.5 MG/Ipratropium 0.5 MG 3 ML INH ONE (18:00)
--- NOTE | 2017-12-21 18:03 | ED ---
HPI Chest Pain - HPI Summary HPI Summary: This is scribe Anahy Preston documenting for attending Breann Tarango MD. This patient is a 67 year old M [facility] [place] by his with a chief complaint of chest pain described as heaviness since 17:30. gave Nitro at 17:36, with improvement of pain from an initial 10/10 to a 5/10. Patient reports tingling in the hands and feet and SOB that is worsened from baseline. Patient additionally c/o dark red blood pre rectum for the past few days. Patient denies abdominal pain. PMHx of COPD, DM, HTN, hypercholesterolemia , CAD, and aortic aneurysm. Patient is not on at home O2. Does have home nebs prn. Last blood glucose was 180 at home by pt, fingerstick. I, Dr. Tarango ,personally performed the services described in this documentation as scribed in my presence and it is both accurate and complete - History of Current Complaint Chief Complaint: EDChestPainROMI Time Seen by Provider: 12/21/17 17:51 Hx Obtained From: Patient, Family/Lead Housekeeper - Onset/Duration: Started Minutes Ago, Still Present Time of Onset: 17:30 Timing: Constant Initial Severity: Severe Current Severity: Moderate Pain Intensity: 5 Pain Scale Used: 0-10 Numeric Chest Pain Location: Left Anterior Chest Pain Radiates: No Character: Dyspnea at Rest, Heaviness Aggravating Factor(s): Nothing Alleviating Factor(s): NTG 123 - took 1 NTG at home Associated Signs and Symptoms: Positive: Chest Pain, Tingling, Shortness of Breath, Other: - bleeding per rectum - Allergy/Home Medications Allergies/Adverse Reactions: Allergies Allergy/AdvReac Type Severity Reaction Status Date / Time azithromycin Allergy Itching Verified 08/01/17 15:11 niacin Allergy Hives Verified 08/01/17 15:11 Home Medications: Home Medications Cetirizine HCl [Allergy Relief] 10 mg PO BEDTIME 12/21/17 [History Confirmed 04/28] Cholecalciferol (Vitamin D3) [Vitamin D3] 3,000 unit PO DAILY 12/21/17 [History Confirmed 12/21/17] Codeine Phosphate/Guaifenesin [Codeine/Guaifenesin 100-10 mg/5Ml] 2 teasp PO QID 12/21/17 [History Confirmed 12/21/17] Dexamethasone 0.1% OPTH.ALEE* 1 drop .SEE ORDER QID 12/21/17 [History Confirmed 12/21/17] Ferrous Sulfate 325 mg PO DAILY 12/21/17 [History Confirmed 12/21/17] Fluticasone NASAL SPRAY 50MCG* [Flonase NASAL SPRAY 50MCG*] 1 spray BOTH NARES BID 12/21/17 [History Confirmed 12/21/17] Gabapentin 300 mg PO TID 12/21/17 [History Confirmed 12/21/17] Saxagliptin HCl [Onglyza] 5 mg PO DAILY 12/21/17 [History Confirmed 12/21/17] PMH/Surg Hx/FS Hx/Imm Hx Endocrine/Hematology History: Reports: Hx Anticoagulant Therapy - 81 MG PO ASA, took this am , Hx Diabetes Denies: Hx Thyroid Disease Cardiovascular History: Reports: Hx Aneurysm - AAA with stent, Hx Angina, Hx Coronary Artery Disease - s/p CABG, Hx Hypercholesterolemia - HLD, Hx Hypertension, Other Cardiovascular Problems/Disorders - ATHEROSCLEROSIS Respiratory History: Reports: Hx Chronic Obstructive Pulmonary Disease (COPD) Denies: Hx Asthma, Other Respiratory Problems/Disorders GI History: Reports: Hx Gastroesophageal Reflux Disease, Hx Hiatal Hernia Denies: Hx Ulcer History: Reports: Other Problems/Disorders - hx bladder CA Sensory History: Denies: Hx Contacts or Glasses Opthamlomology History: Denies: Hx Contacts or Glasses Neurological History: Reports: Hx Migraine Psychiatric History: Reports: Hx Anxiety, Hx Depression - Cancer History Cancer Type, Location and Year: bladder cancer - chemo - 2009 Hx Chemotherapy: Yes - BCG pt did not tolerate so it was d/c'd - Surgical History Surgery Procedure, Year, and Place: cabg x 4 vessels 2008. AAA repair with stent placement 2008. Bilateral inguinal hernia repair. Left eye surgery to repair hanging skin. SCC EXCISION RIGHT NOSE Hx Anesthesia Reactions: No - Immunization History Date of Tetanus Vaccine: Unk Infectious Disease History: No Infectious Disease History: Denies: Hx Clostridium Difficile, Hx Hepatitis, Hx Human Immunodeficiency Virus (HIV), Hx of Known/Suspected MRSA, Hx Shingles, Hx Tuberculosis, Hx Known/ Suspected VRE, Hx Known/Suspected VRSA, History Other Infectious Disease, Traveled Outside the [place] in Last 30 Days - Family History Known Family History: Positive: Cardiac Disease, Other - CANCER - Social History Lives: With Family Alcohol Use: None Hx Substance Use: No Substance Use Type: Reports: None Hx Tobacco Use: Yes Smoking Status (MU): Former Smoker Type: Cigarettes Amount Used/How Often: 35+ years, 1ppd Have You Smoked in the Last Year: No Review of Systems Constitutional: Negative Positive: Chest Pain Positive: Shortness Of Breath Gastrointestinal: Negative Skin: Negative Positive: Paresthesia - tingling in hands and feet Psychological: Normal All Other Systems Reviewed And Are Negative: Yes Physical Exam - Summary Physical Exam Summary: Appearance: Well-appearing, moderate pain distress, well-nourished Skin: Warm, color reflects adequate perfusion, dry Head: Normal Head/Face inspection, atraumatic Eyes: Conjunctiva clear ENT: Normal inspection Neck: Supple, no nodes, no JVD Respiratory: Expiratory wheezes throughout, dyspnea at rest Cardio: RRR, No murmur, pulses normal, brisk capillary refill Abdomen: Soft, nontender Bowel sounds: Present Rectal: Prostate enlarged, no masses, bright red blood per rectum Musculoskeletal: Strength Intact/ROM intact, no calf tenderness, no edema. Psychological: Normal Neuro: Alert, muscle tone normal, no focal deficit Deneen, ED techt, is present for Rectal Exam. Triage Information Reviewed: Yes Vital Signs On Initial Exam: Initial Vitals Temp Pulse Resp BP Pulse Ox 98.7 F 82 18 158/66 98 12/21/17 17:46 12/21/17 17:46 12/21/17 17:46 12/21/17 17:46 12/21/17 17:46 Vital Signs Reviewed: Yes Diagnostics - Vital Signs Vital Signs Temp Pulse Resp BP Pulse Ox 12/21/17 17:46 98.7 F 82 18 158/66 98 - Laboratory Result Diagrams: 12/21/17 18:29 12/21/17 18:29 Lab Statement: Any lab studies that have been ordered have been reviewed, and results considered in the medical decision making process. - Radiology CXR Radiology Interpretation Completed By: Radiologist - POSTSURGICAL CHANGES AND CHRONIC BIBASILAR LINEAR DENSITIES MOST CONSISTENT WITH ATELECTASIS OR SCARRING. ED Physician has reviewed this report. - EKG 1748 Cardiac Rate: NL - 70 BPM EKG Rhythm: Sinus Rhythm ST Segment: Non-Specific - ST-T wave changes Ectopy: None EKG Interpretation: nml AVIVCT, nml QTc, nml axis, downsloping ST V5, V6 EKG Comparison: No Significant Change - compared with 07/03/16 Re-Evaluation - Re-Evaluation First Eval Re-Evaluation Time: 18:50 Change: Improved Comment: wheezes have cleared, chest pain gone at thiis moment. Pt standing to void. Advised of CTA ordered to eval hypoxia, SOB, elevated d dimer, and need for admission. Pt and agree. Chest Pain Course/Dx - Course Course Of Treatment: 67 year old M presenting to [facility] accompanied by his with a chief complaint of chest pain described as heaviness since 17:30. gave Nitro at 17:36, with improvement of pain from an initial 10/10 to a 5/10. Patient reports tingling in the hands and feet and SOB that is worsened from baseline. Patient additionally c/o dark red blood pre rectum for the past few days. Patient denies abdominal pain. Bloodwork reveals an elevated D-Dimer of 315. Stool Occult Blood is positive for blood. Initial troponin is negative. A CXR reveals: "POSTSURGICAL CHANGES AND CHRONIC BIBASILAR LINEAR DENSITIES MOST CONSISTENT WITH ATELECTASIS OR SCARRING." An EKG reveals nml AVIVCT, nml QTc, nml axis, downsloping ST V5, V6., no change c/w 07/03/16. Patient is given Zofran , Morphine, ASA 243mg,(took 1x 81 mg ASA this am) and a Duoneb treatment and IV solumedrol 125mg. A Chest CT is ordered due to elevated D-Dimer. Dr. Heath agrees to admit this patient. - Chest Pain Differential Diagnosis/HQI/PQRI: Acute [place], ACS, Aortic Aneurysm, GI Disease, Pulmonary Embolism, Other: - COPD exacerbation - Diagnoses Provider Diagnoses: Chest pain, Rectal bleeding, COPD exacerbation, Bronchospasm, Hypomagnesemia, Poorly controlled diabetes mellitus - Provider Notifications Discussed Care Of Patient With: Massiel Heath - hospitalist Time Discussed With Above Provider: 19:15 Instructed by Provider To: Admit As Inpatient Discharge - Sign-Out/Discharge Documenting (check all that apply): Patient Departure - admit - Discharge Plan Condition: Stable Disposition: ADMITTED TO [facility] - Billing Disposition and Condition Condition: STABLE Disposition: Admitted to [facility]
[2017-12-21] MEDS ORDERED: Morphine VIAL* 10 MG/ML 1 ML VIAL IV ONE (18:20)
[2017-12-21] MEDS ORDERED: Ondansetron INJ* 2 MG/ML VIAL IV ONE (18:20)
--- NOTE | 2017-12-21 18:22 | RAD ---
INDICATION: Chest pain. COMPARISON: Correlation is made with a prior chest x-ray study from December 31, 2015. TECHNIQUE: A portable view of the chest was obtained. FINDINGS: The patient appears to be status post coronary artery bypass surgery. Note is made of multiple sternal sutures. The heart is within normal limits in size. There are linear densities at both lung bases which appear unchanged from the prior exam suggestive of atelectasis or scarring. No pleural effusion is seen. IMPRESSION: POSTSURGICAL CHANGES AND CHRONIC BIBASILAR LINEAR DENSITIES MOST CONSISTENT WITH ATELECTASIS OR SCARRING.
[2017-12-21 18:36] LABS: ABS Basophils 0 10^3/ul (0-0.2); ABS Eosinophils 0.3 10^3/ul (0-0.6); ABS Lymphocytes 0.6 10^3/ul (1.0-4.8); ABS Monocytes 0.4 10^3/ul (0-0.8); ABS Neutrophils 3.5 10^3/ul (1.5-7.7); ABS Nucleated RBC 0 10^3/ul; Eosinophil % 5.7 % (0-6); Hematocrit 36 % (42-52); Hemoglobin 11.9 g/dl (14.0-18.0); Lymphocyte % 12.8 % (25-47); Mean Corpuscular HGB Conc 33 g/dl (31-36); Mean Corpuscular Hemoglobin 30 pg (27-31); Mean Corpuscular Volume 89 fL (80-94); Mean Platelet Volume 8.4 um3 (7.4-10.4); Nucleated Red Blood Cells % 0; Platelet Count 184 10^3/ul (150-450); Red Blood Count 4.03 10^6/ul (4.00-5.40); Red Cell Distribution Width 15 % (10.5-15); White Blood Count 4.9 10^3/ul (3.5-10.8)
[2017-12-21 18:56] LABS: EGFR Non-African American 53.2 (>60)
[2017-12-21] MEDS ORDERED: methylPREDNISolone 125 MG* 2 ML VIAL IV ONE (19:19)
[2017-12-21] MEDS ORDERED: Nitroglycerin TAB 0.4 MG* 0.4 MG TAB ONE (19:44)
[2017-12-21] MEDS ORDERED: Nitroglycerin 0.2 MG/HR PATCH* (5 MG) TRANSDERM ONE (19:46)
[2017-12-21] MEDS ORDERED: Nitroglycerin 2% OINT* 1 GM PAK TOPICAL ONE (19:50)
[2017-12-21] MEDS ORDERED: Dextrose 50% Syringe 50 ML* 25 GM/50 ML SYRINGE IV PUSH PRN ×2 (19:51→19:52)
[2017-12-21] MEDS ORDERED: Albuterol 2.5 MG/3 ML NEB.SOL* (0.083%) INH PRN (19:53)
[2017-12-21] MEDS ORDERED: Magnesium Sulfate IV* 2 GM in NS 0.9% 100 ML* 100 ML IV ONE (19:54)
[2017-12-21] MEDS ORDERED: Al Hydrox/Mg Hydrox/Simet LIQ* 30 ML UDC PO PRN (20:09)
[2017-12-21] MEDS ORDERED: Senna TAB PO PRN (20:09)
[2017-12-21] MEDS ORDERED: Ondansetron INJ* 2 MG/ML VIAL IV PRN (20:09)
[2017-12-21] MEDS ORDERED: Docusate CAP* 100 MG PO PRN (20:09)
[2017-12-21] MEDS ORDERED: Morphine INJ* 2 MG/ML 1 ML SYRINGE (TWO MG - NEW SYRINGE VERSION) IV PRN (21:05)
[2017-12-21] MEDS: Mometasone 220 MCG MDI INH SCH (21:20)
[2017-12-21] MEDS ORDERED: Iodixanol* (CONTRAST) 320 MG/ML 100 ML SDV IV ONE (21:22)
[2017-12-21] MEDS ORDERED: Insulin GLARGINE(*) 1 UNITS UNIT SUBCUT SCH (22:20)
[2017-12-21] MEDS: Insulin LISPRO* 1 UNITS UNIT SUBCUT SCH ×2 (22:25→23:09)
--- NOTE | 2017-12-21 22:47 | HP ---
CC: Primary care physician at the [facility] in [place]; Edyta Best* HISTORY AND PHYSICAL: DATE OF ADMISSION: 12/21/17 TIME OF EVALUATION: 1900. CHIEF COMPLAINT: Chest pain. HISTORY OF PRESENT ILLNESS: This is a 67-year-old male with past medical history of coronary artery disease, status post bypass, COPD on room air, and poorly controlled diabetes, who presents to the emergency room with acute onset of chest pain. The patient states he was riding in a car with his about 2 hours ago, around 1730 when he developed substernal chest pain, non-radiating, with shortness of breath, diaphoresis. He took a nitro and then it improved, decided to come to the emergency room for further evaluation. He states he has been felt off all day, unable to describe specifically but he has also been nauseated off and on all day. He also started coughing shortly around this chest pain episode. No URI symptoms. No fevers or chills. No weight changes. No lower extremity swelling. No changes in medications. He also has a history of hemorrhoids but noted around half an hour before his chest pain, he had 2 episodes of bright red blood when using the bathroom per rectum. He denies having a recent stress test. Otherwise review of systems negative. In the emergency room, the patient had labs, imaging. He was given Zofran, morphine, Solu-Medrol, aspirin, and DuoNeb and was referred to the hospitalist service for further evaluation. PAST MEDICAL HISTORY: 1. COPD, on room air. 2. Diabetes, on insulin. 3. History of abdominal aortic aneurysm, status post stent repair. 4. History of coronary artery disease, status post bypass. 5. Hyperlipidemia. 6. Anxiety, depression. 7. GERD. 8. History of hiatal hernia. 9. History of bladder cancer, status post chemo in 2009. 10. History of migraines. MEDICATIONS: Per the med rec: 1. Ferrous sulfate 325 mg p.o. daily. 2. Codeine guaifenesin 2 teaspoons p.o. four times a day as needed. 3. Gabapentin 300 mg p.o. t.i.d. 4. Saxagliptin 5 mg p.o. daily. 5. Flonase 1 spray both nares b.i.d. 6. Dexamethasone 1 drop to eyes four times a day. 7. Vitamin D3 of 3000 units daily. 8. Cetirizine 10 mg p.o. at bedtime. 9. Combivent 1 puff inhaled four times a day as needed. 10. Atorvastatin 80 mg p.o. daily. 11. Aspirin 81 mg daily. 12. Fenofibrate 135 mg daily. 13. Glucose chew p.o. daily as needed. 14. Aspart 40 units t.i.d. with meals. 15. Hydrochlorothiazide 25 mg p.o. daily. 16. Novolin. Per the patient, he states he is on long-acting, 100 units b.i.d. 17. Lisinopril 40 mg daily. 18. Metoprolol tartrate 100 mg p.o. b.i.d. 19. Meloxicam 50 mg daily. 20. Magnesium oxide 400 mg daily. 21. Asmanex 220 mcg inhale b.i.d. 22. Omeprazole 20 mg p.o. b.i.d. 23. Metformin 1000 mg p.o. b.i.d. ALLERGIES: 1. AZITHROMYCIN. 2. NIACIN. FAMILY HISTORY: Mother from old age. Father in his 60s from an [place]. SOCIAL HISTORY: The patient lives at home with his who is his healthcare proxy and is caring. He ambulates with a cane, he is independent with his ADLs. He quit smoking in 2008. At that time, he used to smoke cigars a pack per day for many years. No alcohol or illicit drug use. He is a retired assistant pastry chef, on disability. Code status is full code. REVIEW OF SYSTEMS: A 14-point review of systems as mentioned in the HPI. Otherwise, negative. PHYSICAL EXAMINATION GENERAL: In no acute distress. Elderly male. VITAL SIGNS: Temp 98.7, pulse rate is 80, respiratory rate is 14, oxygen saturation is 91% on 2 liters of oxygen, blood pressure is 143/58. HEENT: Head: Normocephalic. Pupils are equal and reactive. His conjunctivae are injected bilaterally. He has left lower lid drooping which is chronic. NECK: No adenopathy. No nuchal rigidity. RESPIRATORY: Bilateral expiratory wheezing, poor aeration. Prolonged expiratory phase. No increased work of breathing. CARDIAC: Regular rate and rhythm. Soft systolic murmur heard throughout. No carotid bruits. ABDOMEN: Soft, nontender, and nondistended. EXTREMITIES: Trace pedal edema. +1 DPs. NEUROLOGIC: Alert and oriented x3. No gross focal neurologic deficits. LABORATORY DATA: White count 4.9, hemoglobin 11.9, hematocrit 36, platelets 184. INR is 1. D-dimer is 315. Sodium 137, potassium 4.6, chloride 101, bicarb 28. BUN 27 and creatinine 1.34. Glucose 306. Lactic acid 1.8. Magnesium 1.7. AST is 64, ALT is 66. Troponin is 0. BNP is 99. TSH 0.94. RADIOGRAPHIC DATA: Chest x-ray, post-surgical changes and chronic bibasilar linear densities, most consistent with atelectasis or scarring. EKG shows normal sinus rhythm with nonspecific T-wave changes in the lateral leads. My encounter, when I placed my stethoscope on his chest, he began developing chest pain again. Repeat EKG shows no significant changes. ASSESSMENT: This is a 67-year-old male with past medical history of COPD and coronary artery disease, who presents to the emergency room with atypical chest pain. 1. Chest pain. Assessment: This is atypical at rest with associated symptoms, it is unclear if this is cardiac given his respiratory exam with bilateral wheezing and coughing today. He states that he normally wheezes all the time, but his thought he was wheezing louder today. Normally he does not cough. CTA was ordered by the emergency room for his minimally elevated d-dimer. Plan: We will admit him to [address] [place] [address], follow up on his CTA. We will get a handle on his COPD exacerbation, respiratory status before pursuing a stress test. We will continue his nebulizer treatments, his Asmanex and continue him on prednisone. Follow up on his CTA. Continue aspirin, trend his troponin. Considering the results, we may need to anticoagulate him to think about guaiac- positive stools. We will continue him on the baby aspirin for now. Recommend stress test as well once his respiratory status is further stabilized. 2. Positive guaiac stool. Assessment: The patient with bright red blood. No evidence per ER of hemorrhoids. His H and H is essentially unchanged from his prior H and Hs, BUN is not elevated. A question if there are internal hemorrhoids, does not seem to be diverticular bleed. We will repeat an H and H this evening and trend this further. 3. Diabetes. The patient has poorly controlled diabetes. Glucose is 300. He is on high levels of insulin at home and oral agents. Plan: We will continue his Lantus and his lispro; however, hold his oral agents as well. We may have difficulty getting this under control, with initiation of prednisone, we will try to stand top of this. 4. Renal insufficiency. Assessment: The patient with a history of an elevated creatinine in the past, but also had normal values as well this past year. His BUN is also elevated, may be slightly dry. Plan, we will hold his hydrochlorothiazide and repeat his blood work in the morning. 5. Transaminitis - Unclear the etiology. Consider holding statins if they remain elevated. Will repeat labs in AM 6. Chronic medical problems, anemia. We will check iron studies as above and continue him on his ferrous sulfate. 7. Hypertension, hyperlipidemia. Continue him on his lisinopril, his metoprolol, his baby aspirin, his atorvastatin. 8. Gastroesophageal reflux disease. Continue him on his Prilosec. 8. FEN. We will place him on a heart-healthy diet. 10. DVT prophylaxis. The patient scores high risk in the setting of his risk of bleeding. We will order SCDs for now. 11. Code status. Full code. PATIENT TIME: Greater than 50 minutes was spent doing the history and physical , half the time was spent in direct patient contact and critical care time. [id number]/[facility] #: [id number] [place]
[2017-12-21] MEDS: Gabapentin CAP(*) 300 MG PO SCH (22:50)
[2017-12-21] MEDS: Metoprolol Tartrate TAB* 100 MG TAB PO SCH (22:50)
[2017-12-21] MEDS: Omeprazole CAP* 20 MG PO SCH (22:50)
[2017-12-21] MEDS: DEXAMETHASONE 0.1% SCH (22:51)
[2017-12-21] MEDS: OPTH SCH (22:51)
[2017-12-21] MEDS: Fluticasone NASAL SPRAY 50MCG* 16 gm SPRAY BTL BOTH NARES SCH (22:52)
[2017-12-22 00:01] LABS: Hematocrit 34 % (42-52); Hemoglobin 11.2 g/dl (14.0-18.0)
[2017-12-22 06:35] LABS: EGFR Non-African American 55.6 (>60)
--- NOTE | 2017-12-22 07:45 | RAD ---
HISTORY: sob, wheezing, chest pain, inc d dimer COMPARISONS: None TECHNIQUE: Multiple contiguous axial CT scans of the chest were obtained after the administration of nonionic intravenous contrast, timed to the pulmonary arterial phase of contrast enhancement.. Coronal and sagittal multiplanar reformations are also submitted for review. FINDINGS: Evaluation is limited by suboptimal contrast opacification. The attenuation of the main pulmonary artery is between 200 -250 Hounsfield units which is of borderline but diagnostic quality for the detection of pulmonary embolism. NECK AND THYROID: The lower neck and thyroid are unremarkable. CHEST WALL: There is no lower cervical, axillary, or supraclavicular lymphadenopathy by size criteria. HEART AND PERICARDIUM: Coronary and valvular cardiac calcifications are noted. AORTA AND PULMONARY VASCULATURE: Evaluation is limited by suboptimal contrast opacification. There is no pulmonary arterial filling defect to suggest pulmonary embolism. There is no linear filling defect within the aorta to suggest aortic dissection. There is atherosclerosis of the thoracic aorta. MEDIASTINUM: There is no mediastinal lymphadenopathy by size criteria. ROZINA: There is no hilar lymphadenopathy by size criteria. AIRWAY AND ESOPHAGUS: The airway is unremarkable, without endobronchial filling defect. The esophagus is grossly normal. LUNG PARENCHYMA: The lungs are clear. PLEURA: No pleural abnormalities are noted. UPPER ABDOMEN: An aortic stent graft is noted. BONES AND SOFT TISSUES: The patient is status post median sternotomy. OTHER: None. IMPRESSION: NO PULMONARY ARTERIAL FILLING DEFECT TO SUGGEST PULMONARY EMBOLISM. ATHEROSCLEROSIS. R0
[2017-12-22] MEDS: Mometasone 220 MCG MDI INH SCH ×2 (08:10→20:56)
[2017-12-22] MEDS: Atorvastatin* 80 MG TAB PO SCH (08:45)
[2017-12-22] MEDS: Omeprazole CAP* 20 MG PO SCH (08:46)
[2017-12-22] MEDS: predniSONE TAB* 20 MG PO SCH (08:46)
[2017-12-22] MEDS: Metoprolol Tartrate TAB* 100 MG TAB PO SCH ×2 (08:46→21:45)
[2017-12-22] MEDS: Insulin LISPRO* 1 UNITS UNIT SUBCUT SCH ×7 (08:47→17:44)
[2017-12-22] MEDS: Magnesium Oxide TAB* 400 MG PO SCH (08:48)
[2017-12-22] MEDS: DEXAMETHASONE 0.1% SCH ×4 (08:50→20:24)
[2017-12-22] MEDS: OPTH SCH ×4 (08:50→20:24)
[2017-12-22] MEDS: Fluticasone NASAL SPRAY 50MCG* 16 gm SPRAY BTL BOTH NARES SCH ×2 (08:50→21:52)
[2017-12-22] MEDS: Gabapentin CAP(*) 300 MG PO SCH ×3 (10:29→21:44)
[2017-12-22] MEDS: Ferrous Sulfate TAB* 325 MG PO SCH (10:29)
[2017-12-22] MEDS: Aspirin EC TAB* 81 MG TAB.EC PO SCH (10:29)
[2017-12-22] MEDS: Insulin GLARGINE(*) 1 UNITS UNIT SUBCUT SCH ×2 (10:32→21:45)
[2017-12-22] MEDS: Lisinopril TAB* 10 MG PO SCH (10:50)
[2017-12-22 11:26] LABS: ABS Basophils 0 10^3/ul (0-0.2); ABS Eosinophils 0 10^3/ul (0-0.6); ABS Lymphocytes 0.3 10^3/ul (1.0-4.8); ABS Monocytes 0.2 10^3/ul (0-0.8); ABS Neutrophils 4.7 10^3/ul (1.5-7.7); ABS Nucleated RBC 0 10^3/ul; Eosinophil % 0 % (0-6); Hematocrit 35 % (42-52); Hemoglobin 11.3 g/dl (14.0-18.0); Lymphocyte % 5.8 % (25-47); Mean Corpuscular HGB Conc 33 g/dl (31-36); Mean Corpuscular Hemoglobin 29 pg (27-31); Mean Corpuscular Volume 89 fL (80-94); Mean Platelet Volume 8.7 um3 (7.4-10.4); Nucleated Red Blood Cells % 0; Platelet Count 161 10^3/ul (150-450); Red Blood Count 3.86 10^6/ul (4.00-5.40); Red Cell Distribution Width 15 % (10.5-15); White Blood Count 5.2 10^3/ul (3.5-10.8)
[2017-12-22] MEDS: Pantoprazole IV* 40 MG IV SCH ×2 (11:45→21:45)
[2017-12-22] MEDS ORDERED: Morphine INJ* 2 MG/ML 1 ML SYRINGE (TWO MG - NEW SYRINGE VERSION) IV PRN ×2 (16:06→18:45)
[2017-12-22] MEDS ORDERED: Acetaminophen TAB* 325 MG PO PRN (16:06)
--- NOTE | 2017-12-22 16:26 | PN ---
Subjective Date of Service: 12/22/17 Interval History: Pt seen and examined. Meds and labs reviewed. Pts stress test held until tomorrow given he ingested caffeine CC: NACP on presentation no longer present during my visit ROS: Denied JOHNSON/dizziness, F/C, N/V, CP, SOB, increased cough, sputum production , abd pain, diarrhea, constipation, dysuria, myalgias, arthralgias, throat pain , and new skin lesions. The rest of the 14 point ROS are unremarkable. PHYSICAL EXAM: GEN APPEARANCE: Awake, not in acute distress HEENT: NC/AT, PERRLA, moist oral mucosa, (-) throat erythema NECK: Soft, supple, (-) cervical LAD, (-)JVD HEART: S1S2 WNL, RRR, No MRG CHEST: CTA, BL, GAE, No W/R/R ABD: Soft, ND/NT, NABS 4x Q EXT: No C/C/E SKIN: Warm to touch PSYCH: No active psychosis, hallucinations, depression, SI/HI Objective Active Medications: Acetaminophen (Tylenol Tab*) 650 mg PO Q6H PRN PRN Reason: FEVER/PAIN Al Hydrox/Mg Hydrox/Simethicone (Maalox Plus*) 30 ml PO Q6H PRN PRN Reason: INDIGESTION Albuterol (Ventolin 2.5 Mg/3 Ml Neb.Karla*) 2.5 mg INH Q2H PRN PRN Reason: SOB/WHEEZING Albuterol/Ipratropium (Duoneb (Albuterol 2.5 Mg/Ipratropium 0.5 Mg)) 1 neb INH Q4H PRN PRN Reason: SOB/WHEEZING Aspirin (Aspirin Ec Tab*) 81 mg PO DAILY [facility] Last Admin: 12/22/17 10:29 Dose: 81 mg Atorvastatin Calcium (Lipitor*) 80 mg PO DAILY [facility] Last Admin: 12/22/17 08:45 Dose: 80 mg Dexamethasone (Dexamethasone 0.1% Opth.Karla*) 1 drop .SEE ORDER QID [facility] Last Admin: 12/22/17 13:27 Dose: Not Given Dextrose (D50w Syringe 50 Ml*) 12.5 gm IV PUSH .FOR FS < 60 - SS PRN PRN Reason: FS < 60 Docusate Sodium (Colace Cap*) 100 mg PO BID PRN PRN Reason: CONSTIPATION Last Admin: 12/21/17 22:50 Dose: 100 mg Ferrous Sulfate (Ferrous Sulfate Tab*) 325 mg PO DAILY [facility] Last Admin: 12/22/17 10:29 Dose: 325 mg Fluticasone Propionate (Flonase Nasal [place] 50mcg*) 1 spray BOTH NARES BID [facility] Last Admin: 12/22/17 08:50 Dose: Not Given Gabapentin (Neurontin Cap(*)) 300 mg PO TID [facility] Last Admin: 12/22/17 13:24 Dose: 300 mg Insulin Glargine (Lantus(*)) 88 units SUBCUT BID [facility] Last Admin: 12/22/17 10:32 Dose: 88 units Insulin Human Lispro (Humalog*) 0 units SUBCUT [facility]; Protocol Last Admin: 12/22/17 15:06 Dose: 6 units Insulin Human Lispro (Humalog*) 0 units SUBCUT AC [facility]; Protocol Last Admin: 12/22/17 13:25 Dose: 15 units Lisinopril (Prinivil Tab*) 40 mg PO DAILY [facility] Last Admin: 12/22/17 10:50 Dose: 40 mg Magnesium Oxide (Magox 400 Tab*) 400 mg PO QAM [facility] Last Admin: 12/22/17 08:48 Dose: 400 mg Metoprolol Tartrate (Lopressor Tab*) 100 mg PO BID [facility] Last Admin: 12/22/17 08:46 Dose: 100 mg Mometasone Furoate (Asmanex 220 Mcg Mdi *) 2 puff INH BID [facility]; Protocol Last Admin: 12/22/17 08:10 Dose: Not Given Morphine Sulfate (Morphine Inj ((Syringe))*) 0.5 mg IV Q4H PRN PRN Reason: PAIN Ondansetron HCl (Zofran Inj*) 4 mg IV Q4H PRN PRN Reason: NAUSEA/VOMITING Pantoprazole Sodium (Protonix Iv*) 40 mg IV BID [facility] Last Admin: 12/22/17 11:45 Dose: 40 mg Prednisone (Deltasone Tab*) 40 mg PO DAILY [facility] Last Admin: 12/22/17 08:46 Dose: 40 mg Senna (Senokot Tab*) 1 tab PO BID PRN PRN Reason: CONSTIPATION Last Admin: 12/21/17 22:50 Dose: 1 tab Vital Signs - 8 hr 0812/22/17 12/22/17 10:29 12:00 13:24 Temperature 97.8 F Pulse Rate 66 Respiratory 19 18 20 Rate Blood Pressure 143/65 (mmHg) O2 Sat by Pulse 92 Oximetry 12/22/17 12/22/17 14:50 15:48 Temperature 98.1 F Pulse Rate 66 Respiratory 20 20 Rate Blood Pressure 134/56 (mmHg) O2 Sat by Pulse 92 Oximetry Oxygen Devices in Use Now: Nasal Cannula Result Diagrams: 12/22/17 11:10 12/22/17 05:52 Microbiology and Other Data: Microbiology 12/21/17 18:05 Stool Occult Blood (SARAH) - Final Stool Assess/Plan/Problems-Billing Assessment: - Patient Problems (1) Chest pain Current Visit: Yes Status: Acute Code(s): R07.9 - CHEST PAIN, UNSPECIFIED SNOMED Code(s): 30470358 Comment: -(-) Troponins x3---no evidence of ACS -Possible CAD evaluation deferred for tomorrow given caffeine ingestion -NPO after midnight for stress test in AM -Both age-adjusted D-dimer and CTA of chest has ruled out PE (2) Guaiac + stool Current Visit: Yes Status: Acute Comment: -Otherwise brown stools -Will defer for outpt colonoscopy -Possible internal hemorrhoids?? -Stable H&H (3) Diabetes 1.5, managed as type 2 Current Visit: Yes Status: Acute Code(s): E10.9 - TYPE 1 DIABETES MELLITUS WITHOUT COMPLICATIONS SNOMED Code(s): 869025076 Comment: -Increased Lantus to 88 units SQ BID -Continue CHO-counting with ISS with CCD (Consistent CHO diet) (4) MONE (acute kidney injury) Current Visit: Yes Status: Acute Code(s): N17.9 - ACUTE KIDNEY FAILURE, UNSPECIFIED SNOMED Code(s): 48929869 Comment: -Agree with holding HCTZ -Continue watchful waiting -Consider calculating FENa and FE-Urea in AMwill send urine lytes in AM (5) Elevated LFTs Current Visit: Yes Status: Acute Code(s): R94.5 - ABNORMAL RESULTS OF LIVER FUNCTION STUDIES SNOMED Code(s): 689796018 Comment: -Chronic -Likely due to fatty liver disease due to steatohepatitis due to uncontrolled DM and other comorbidities? Previous imaging on July suggests an enlarged liver with hepatic cyst with no other focal hepatic lesionscysts are likely incidental -Send for viral hepatitis screen as ordered -May receive Tylenol for pain/fever as long as it does not exceed 2g/day (6) DVT prophylaxis Current Visit: Yes Status: Acute Code(s): WJP5803 - SNOMED Code(s): 519074501 Comment: -Continue SCDs Status and Disposition: -For PT eval
[2017-12-22] MEDS: Albuterol/Ipratropium NEB.SOL* Albuterol 2.5 MG/Ipratropium 0.5 MG 3 ML INH PRN ×2 (17:53→20:56)
[2017-12-22 18:10] LABS: ABS Basophils 0 10^3/ul (0-0.2); ABS Eosinophils 0 10^3/ul (0-0.6); ABS Lymphocytes 0.4 10^3/ul (1.0-4.8); ABS Monocytes 0.5 10^3/ul (0-0.8); ABS Neutrophils 6.1 10^3/ul (1.5-7.7); ABS Nucleated RBC 0 10^3/ul; Eosinophil % 0 % (0-6); Hematocrit 35 % (42-52); Hemoglobin 11.7 g/dl (14.0-18.0); Lymphocyte % 5.1 % (25-47); Mean Corpuscular HGB Conc 33 g/dl (31-36); Mean Corpuscular Hemoglobin 30 pg (27-31); Mean Corpuscular Volume 89 fL (80-94); Mean Platelet Volume 8.9 um3 (7.4-10.4); Nucleated Red Blood Cells % 0; Platelet Count 193 10^3/ul (150-450); Red Blood Count 3.96 10^6/ul (4.00-5.40); Red Cell Distribution Width 16 % (10.5-15)
[2017-12-22] MEDS ORDERED: Nitroglycerin TAB 0.4 MG* 0.4 MG TAB SL PRN (18:45)
[2017-12-23] MEDS: Nystatin TOP POWDER* 15 GM BTL TOPICAL SCH ×2 (02:17→09:26)
[2017-12-23] MEDS: Mometasone 220 MCG MDI INH SCH (08:29)
[2017-12-23] MEDS: DEXAMETHASONE 0.1% SCH ×2 (09:17→14:20)
[2017-12-23] MEDS: OPTH SCH ×2 (09:17→14:20)
[2017-12-23] MEDS: Fluticasone NASAL SPRAY 50MCG* 16 gm SPRAY BTL BOTH NARES SCH (09:17)
[2017-12-23] MEDS: Pantoprazole IV* 40 MG IV SCH (09:26)
[2017-12-23] MEDS ORDERED: Aminophylline IV* 25 MG/ML 10 ML VIAL ONE (10:34)
[2017-12-23] MEDS ORDERED: Regadenoson* 0.4 MG/5 ML SYRINGE ONE (10:34)
--- NOTE | 2017-12-23 13:25 | RAD ---
HISTORY: CP, negative troponins COMPARISONS: June 24, 2013 TECHNIQUE: A 1 day stress/rest myocardial perfusion study was performed, with pharmacologic stress. The stress portion was monitored by Dr. Meredith. Gated SPECT imaging was performed, with CT-based attenuation correction DOSE: Stress: Technetium 99m tetrofosmin, 25.2 millicuries, injected at 11:55 AM on December 23, 2017 Rest: Technetium 99m tetrofosmin, 10.05 millicuries, injected at 6:23 AM on December 23, 2017 Pharmacologic agent: Lexiscan FINDINGS: CARDIAC MONITORING: Nondiagnostic EKG secondary resting EKG abnormalities EF: 63% TID: (06 MOTION: Normal motion, with normal wall thickening. PERFUSION: There is a small fixed defect along the septum anteriorly. There is no reversible defect. OTHER: None IMPRESSION: SMALL FIXED DEFECT OF THE SEPTUM. NO REVERSIBLE DEFECT TO SUGGEST ISCHEMIA. ASSESSMENT: LOW RISK. Based on imaging criteria from ACC/AHA 2002. Guideline Update for the Management of Patient's with Chronic Stable Angina, table 23. Noninvasive Risk Stratification.
[2017-12-23] MEDS: Insulin LISPRO* 1 UNITS UNIT SUBCUT SCH ×4 (14:07→15:52)
[2017-12-23] MEDS: predniSONE TAB* 20 MG PO SCH (14:14)
[2017-12-23] MEDS: Atorvastatin* 80 MG TAB PO SCH (14:15)
[2017-12-23] MEDS: Gabapentin CAP(*) 300 MG PO SCH ×2 (14:15→15:49)
[2017-12-23] MEDS: Aspirin EC TAB* 81 MG TAB.EC PO SCH (14:16)
[2017-12-23] MEDS: Ferrous Sulfate TAB* 325 MG PO SCH (14:16)
[2017-12-23] MEDS: Magnesium Oxide TAB* 400 MG PO SCH (14:16)
[2017-12-23] MEDS: Lisinopril TAB* 10 MG PO SCH (14:17)
[2017-12-23] MEDS: Insulin GLARGINE(*) 1 UNITS UNIT SUBCUT SCH (14:49)
[2017-12-23] MEDS: Metoprolol Tartrate TAB* 100 MG TAB PO SCH (14:50)
[2017-12-23] MEDS ORDERED: Insulin NPH(*) 1 UNITS UNIT SUBCUT ONE (15:00)
[2017-12-23] MEDS ORDERED: Metoprolol Tartrate TAB* 100 MG TAB PO ONE (15:00)
[2017-12-23 16:04] VITALS: BP 152/66
--- NOTE | 2017-12-25 05:24 | DS ---
CC: Edyta Best NP, [facility] DISCHARGE SUMMARY: DATE OF ADMISSION: 12/21/17 DATE OF DISCHARGE: 12/23/17 PRIMARY CARE PROVIDER: Edyta Best NP, [facility]. DISCHARGE DIAGNOSES: 1. Mild chronic obstructive pulmonary disease exacerbation. 2. Chest pain, acute coronary syndrome ruled out. 3. Lower gastrointestinal bleed, likely hemorrhoidal in nature. 4. Transaminitis, likely due to fatty liver. SECONDARY DIAGNOSES: 1. Chronic obstructive pulmonary disease. 2. Type 2 diabetes. 3. History of abdominal aortic aneurysm, status post repair. 4. Coronary artery disease, status post bypass. 5. Hyperlipidemia. 6. Anxiety. 7. Depression. 8. Gastroesophageal reflux disease. 9. Hiatal hernia. 10. Bladder cancer. 11. Migraines. 12. History of tobacco abuse. MEDICATION LIST: 1. Ferrous sulfate 325 mg p.o. daily. 2. Codeine/guaifenesin 10/100 mg in 5 mL, 2 teaspoons p.o. four times a day as needed for cough. 3. Gabapentin 300 mg p.o. t.i.d. 4. Onglyza 5 mg p.o. daily. 5. Fluticasone nasal spray, 1 spray to both nares b.i.d. 6. Dexamethasone 0.1% one drop to affected eye four times a day. 7. Cholecalciferol 3000 units p.o. daily. 8. Cetirizine 10 mg p.o. at bedtime. 9. Combivent 1 puff inhaled four times a day p.r.n. shortness of breath. 10. Atorvastatin 80 mg p.o. daily. 11. Aspirin 81 mg p.o. daily. 12. Fenofibrate 145 mg p.o. daily. 13. Glucose, vitamin C 4 chewable tablets daily as needed for hypoglycemia with glucose less than 60. 14. NovoLog 50 units subcutaneous t.i.d. with meals. 15. Hydrochlorothiazide 25 mg p.o. daily. 16. Insulin NPH 100 units subcutaneously b.i.d. 17. Lisinopril 40 mg p.o. daily. 18. Metoprolol tartrate 100 mg p.o. b.i.d. 19. Magnesium oxide 400 mg p.o. q.a.m. 20. Asmanex 220 mcg inhaled b.i.d. 21. Omeprazole 20 mg p.o. b.i.d. 22. Metformin 1000 mg p.o. b.i.d. New medications: 1. Prednisone taper as follows: 40 mg p.o. daily for 3 days, then 30 mg for 3 days, 20 mg for 3 days, 10 mg for 3 days, 5 mg for 3 days, and stop. 2. Nystatin powder to anal rash b.i.d. HOSPITAL COURSE: Mr. Vicente is a 67-year-old male with a past medical history stated above that presented to the emergency room with complaints of substernal chest pain associated with shortness of breath and diaphoresis. For further details, I will refer you to his history and physical. The patient had serial troponins that were negative and a CTA of the chest that showed no pulmonary arterial filling defect to suggest pulmonary embolism. Apparently, the patient had some coffee, so his stress test had to be postponed, but on 12/23/17, he had Myoview stress test that showed a small fixed defect of the septum with no reversible defect to suggest ischemia and assessment was a low-risk stress test. This result was discussed with Cardiology (Dr. Meredith) and his recommendation was to continue current management and for the patient to follow up with his senior controls technician at the [facility]. The patient also had reported 2 episodes of bright red blood per rectum and he had no further episodes of bleeding while in the hospital. His H and H remained stable around . Stool for occult blood was positive. The recommendation for the patient to follow up with GI as an outpatient to consider colonoscopy. We believe that his bleeding is probably secondary to internal hemorrhoids. The patient was also found to have elevation of his creatinine but this appeared to be a chronic finding because his creatinine was already elevated in July. The patient's diabetes is poorly controlled with A1c of 10.3 and his glucose while in the hospital remained above 200, sometimes even above 300 despite insulin use. So, he will need further evaluation for tighter glucose management. He was also found to have transaminitis with AST of 51, ALT of 58, and this is likely secondary to fatty liver. This should be monitored as an outpatient. The patient was also found to have a mild COPD exacerbation with some chest tightness and shortness of breath. He does not appear to have a bacterial infection at this time and he responded well to steroids and he is being discharged on the steroid taper. He had an oxygen saturation of 92% on room air at rest, but dropped to 87% with exertion and required 3 L of oxygen to maintain oxygen greater than 90%. He should have his saturation checked again as an outpatient to see if he still requires oxygen supplementation. The patient is medically stable to be discharged home at this time, to follow up with Edyta Best NP, at the [facility] as an outpatient. PHYSICAL EXAMINATION: Vital Signs: Temperature 98.4, heart rate is 85, respiratory rate is 20, oxygen saturation 92% on room air, blood pressure is 152 /66. General: The patient is a pleasant obese gentleman, sitting up in bed, in no acute distress. CVS: Normal S1 and S2, regular rate and rhythm. Chest: Breath sounds bilaterally diminished with no added sounds. Abdomen is obese. Bowel sounds are present. Neuro: He is alert and oriented x3, able to move all 4 extremities. DIET: Heart healthy, consistent carb diet, avoid caffeine. ACTIVITIES: As tolerated. DISPOSITION: To home. STATUS WHILE IN THE HOSPITAL: Inpatient. Please keep in mind that this is a summarized version of this patient's hospital stay. If you need more information, please feel free to call me at or please obtain the full medical records. TIME SPENT: Approximately 45 minutes was spent to complete this discharge. [id number]/[facility] #: [id number] MTDD
== END 2017-12-23 17:10 | disposition home or self-care (01) | DRG 191 ==
LOC: ED 17:44 → MEDTELE 20:09
PROVIDERS: ADMIT Pediatrics; ATTEND Internal Medicine
DX: J44.1 Chronic obstructive pulmonary disease with (acute) exacerbation (principal); J98.11 Atelectasis; K92.1 Melena; N17.9 Acute kidney failure, unspecified; E11.65 Type 2 diabetes mellitus with hyperglycemia; I11.9 Hypertensive heart disease without heart failure; R07.9 Chest pain, unspecified; R74.0 Nonspecific elevation of levels of transaminase and lactic acid dehydrogenase [LDH]; I25.10 Atherosclerotic heart disease of native coronary artery without angina pectoris; E78.5 Hyperlipidemia, unspecified; F41.9 Anxiety disorder, unspecified; F32.9 Major depressive disorder, single episode, unspecified; K21.9 Gastro-esophageal reflux disease without esophagitis; K44.9 Diaphragmatic hernia without obstruction or gangrene; K64.8 Other hemorrhoids; R94.5 Abnormal results of liver function studies; K76.0 Fatty (change of) liver, not elsewhere classified; G43.909 Migraine, unspecified, not intractable, without status migrainosus; N28.9 Disorder of kidney and ureter, unspecified; Z87.891 Personal history of nicotine dependence; Z95.1 Presence of aortocoronary bypass graft; Z85.51 Personal history of malignant neoplasm of bladder; Z79.84 Long term (current) use of oral hypoglycemic drugs; Z79.82 Long term (current) use of aspirin; Z79.4 Long term (current) use of insulin; Z79.899 Other long term (current) drug therapy; Z88.1 Allergy status to other antibiotic agents; Z88.8 Allergy status to other drugs, medicaments and biological substances; Z82.49 Family history of ischemic heart disease and other diseases of the circulatory system
CPT/HCPCS: 36415; 71045; 71275; 78452; 80053; 80061; 82272; 82550; 82553; 82570; 82728; 83036; 83540; 83550; 83605; 83735; 83880; 84300; 84443; 84484; 84540; 85014; 85018; 85025; 85379; 85610; 85730; 86705; 86803; 86850; 86900; 86901; 87340; 93005; 93017; 94640; 99284; A9270-GY; A9502; J0280; J2270; J2405; J2785; J2930; J3475; J7512; Q9967

== ENCOUNTER → 2018-03-10 17:08 | Emergency (ER) | payer MEDICARE ==
[~2018-03-10 17:08] MED LIST: HYDROmorphone INJ* 1 MG/ML CARPUJECT SYRINGE IV ONE; HYDROmorphone INJ1* 1 MG/ML SYRINGE IV ONE; HYDROmorphone INJ1* 1 MG/ML SYRINGE ONE; Ondansetron INJ* 2 MG/ML VIAL IV ONE
--- NOTE | 2018-03-10 17:48 | ED ---
Abdominal Pain/Male - HPI Summary HPI Summary: The pt is a 68 y/o male BIBA to [facility] c/o lower abd pain since 15:00 hrs today. He notes nausea and constipation. The waves of abd pain is rated 10/10 in severity. EMS administered Zofran en route. - History of Current Complaint Chief Complaint: EDAbdPain Stated Complaint: ABD PAIN Time Seen by Provider: 03/10/18 17:26 Hx Obtained From: Patient, EMS Onset/Duration: Sudden Onset - 15:00 hrs today, Lasting Hours, Still Present Timing: Intermittent Severity Initially: Severe Severity Currently: Severe Pain Intensity: 10 Pain Scale Used: 0-10 Numeric Location: Other - Lower abdomen Associated Signs And Symptoms: Positive: Constipation, Nausea - Allergies/Home Medications Allergies/Adverse Reactions: Allergies Allergy/AdvReac Type Severity Reaction Status Date / Time azithromycin Allergy Itching Verified 03/10/18 17:24 niacin Allergy Hives Verified 03/10/18 17:24 PMH/Surg Hx/FS Hx/Imm Hx Previously Healthy: No Endocrine/Hematology History: Reports: Hx Anticoagulant Therapy - 81 MG PO ASA, took this am , Hx Diabetes Denies: Hx Thyroid Disease Cardiovascular History: Reports: Hx Aneurysm - AAA with stent, Hx Angina, Hx Coronary Artery Disease - s/p CABG, Hx Hypercholesterolemia - HLD, Hx Hypertension, Hx Myocardial Infarction, Other Cardiovascular Problems/Disorders - ATHEROSCLEROSIS Respiratory History: Reports: Hx Chronic Obstructive Pulmonary Disease (COPD) Denies: Hx Asthma, Other Respiratory Problems/Disorders GI History: Reports: Hx Gastroesophageal Reflux Disease, Hx Hiatal Hernia Denies: Hx Ulcer History: Reports: Other Problems/Disorders - hx bladder CA Sensory History: Denies: Hx Contacts or Glasses, Hx Hearing Aid Opthamlomology History: Denies: Hx Contacts or Glasses Neurological History: Reports: Hx Migraine Psychiatric History: Reports: Hx Anxiety, Hx Depression - Cancer History Cancer Type, Location and Year: bladder cancer - chemo - 2009 Hx Chemotherapy: Yes - BCG pt did not tolerate so it was d/c'd - Surgical History Surgery Procedure, Year, and Place: cabg x 4 vessels 2008. AAA repair with stent placement 2008. Bilateral inguinal hernia repair. Left eye surgery to repair hanging skin. SCC EXCISION RIGHT NOSE Hx Anesthesia Reactions: No - Immunization History Date of Tetanus Vaccine: Unk Date of Influenza Vaccine: Fall 2013 Infectious Disease History: No Infectious Disease History: Denies: Hx Clostridium Difficile, Hx Hepatitis, Hx Human Immunodeficiency Virus (HIV), Hx of Known/Suspected MRSA, Hx Shingles, Hx Tuberculosis, Hx Known/ Suspected VRE, Hx Known/Suspected VRSA, History Other Infectious Disease, Traveled Outside the [place] in Last 30 Days - Family History Known Family History: Positive: Cardiac Disease, Other - CANCER - Social History Occupation: Unemployed, Disabled Alcohol Use: None Hx Substance Use: No Substance Use Type: Reports: None Hx Tobacco Use: Yes Smoking Status (MU): Former Smoker Type: Cigarettes Amount Used/How Often: 35+ years, 1ppd Have You Smoked in the Last Year: No Review of Systems Negative: Fever Positive: Abdominal Pain - Lower abd , Nausea, Other - Positive: Constipation All Other Systems Reviewed And Are Negative: Yes Physical Exam - Summary Physical Exam Summary: Appearance: The patient is well-nourished in no acute distress and in no acute pain. Skin: The skin is warm and dry and skin color reflects adequate perfusion. HEENT: The head is normocephalic and atraumatic. The pupils are equal and reactive. The conjunctivae are clear and without drainage. Nares are patent and without drainage. Mouth reveals moist mucous membranes and the throat is without erythema and exudate. The external ears are intact. The ear canals are patent and without drainage. The tympanic membranes are intact. Neck: The neck is supple with full range of motion and non-tender. There are no carotid bruits. There is no neck vein distension. Respiratory: Chest is non-tender. Lungs are clear to auscultation and breath sounds are symmetrical and equal. Cardiovascular: Heart is regular rate and rhythm. There is no murmur or rub auscultated. There is no peripheral edema and pulses are symmetrical and equal. Abdomen: The abdomen is soft and tender in the RLQ . There are normal bowel sounds heard in all four quadrants and there is no organomegaly palpated. Musculoskeletal: There is no back tenderness noted. Extremities are non-tender with full range of motion. There is good capillary refill. There is no peripheral edema or calf tenderness elicited. Neurological: Patient is alert and oriented to person, place and time. The patient has symmetrical motor strength in all four extremities. Cranial nerves are grossly intact. Deep tendon reflexes are symmetrical and equal in all four extremities. Psychiatric: The patient has an appropriate affect and does not exhibit any anxiety or depression. Triage Information Reviewed: Yes Vital Signs On Initial Exam: Initial Vitals Resp 19 03/10/18 17:20 Vital Signs Reviewed: Yes Diagnostics - Vital Signs Vital Signs Temp Pulse Resp BP Pulse Ox 03/10/18 17:21 98.4 F 65 17 181/78 98 03/10/18 17:20 19 - Laboratory Result Diagrams: 03/10/18 18:14 03/10/18 18:14 Lab Statement: Any lab studies that have been ordered have been reviewed, and results considered in the medical decision making process. - CT Abd/Pel CT CT Interpretation Completed By: Radiologist - IMPRESSION: 1. Small bowel obstruction secondary to incarcerated loop of small bowel within a ventral abdominal wall hernia. Recommend surgical consultation. 2. Interval increase in size of intrarenal abdominal aortic aneurysm, now measuring 5.6 x 6.1 cm in cross-sectional diameter. This is likely secondary to chronic junctional separation between the main graft component and the left iliac arm, likely correlating with underlying type IIIA endoleak. Recommend vascular surgery consultation. 3. Other chronic findings, as above. The ED physician reviewed this radiology report. Abdominal Pain Fem Course/Dx - Course Course Of Treatment: Mr. Vicente presented to the emergency department with a fairly sudden onset of low abdominal pain. He has multiple medical problems and is known to have an aortic aneurysm stenting. His vital signs were located but he had a good deal of right lower quadrant tenderness. CT scan revealed an early small bowel obstruction secondary to incarcerated inguinal hernia. Dr. Walter was able to reduce the hernia here in the department and will follow him up for elective repair. An incidental finding of a failure of his stent was found on CT scan and it was recommended that he follow-up with Dr. Nava within the next week or 2. - Diagnoses Provider Diagnoses: Incarcerated inguinal hernia - Provider Notifications Discussed Care Of Patient With: Julio César Walter - General Surgeon Time Discussed With Above Provider: 18:35 Instructed by Provider To: MD Will See In ED Discharge - Sign-Out/Discharge Documenting (check all that apply): Patient Departure - DC - Discharge Plan Condition: Stable Disposition: HOME Patient Education Materials: Inguinal Hernia (ED) Referrals: Edyta Best [Primary Care Provider] - Julio César Walter MD [Medical Doctor] - Oskar Atkins MD [Medical Doctor] - Additional Instructions: Follow up with Dr Walter as discussed and with Dr. Atkins over the next couple of weeks to evaluate your aortic graft. Return to ED for any new or worsening symptoms - Billing Disposition and Condition Condition: STABLE Disposition: Home - Attestation Statements Document Initiated by Praveenae: Yes Documenting Scribe: Ashley Owens Provider For Whom Scribe is Documenting (Include Credential): Dr. Kiran Khoury MD Scribe Attestation: Ashley Kwong scribed for Dr. Kiran Khoury MD on 03/10/18 at 2057. Scribe Documentation Reviewed: Yes Provider Attestation: The documentation as recorded by the Ashley rangel accurately reflects the service I personally performed and the decisions made by me, Dr. Kiran Khoury MD
--- NOTE | 2018-03-10 18:21 | RAD ---
EXAM: CT Abdomen and Pelvis Without Intravenous Contrast CLINICAL HISTORY: 68 years old, male; Pain; Abdominal pain; Prior surgery; Surgery type: Aaa repair; Patient HX: Midd abd pain; Additional info: Right flank pain TECHNIQUE: Axial computed tomography images of the abdomen and pelvis without intravenous contrast. All CT scans at this facility use at least one of these dose optimization techniques: automated exposure control; mA and/or kV adjustment per patient size (includes targeted exams where dose is matched to clinical indication); or iterative reconstruction. Coronal and sagittal reformatted images were created and reviewed. COMPARISON: A/P W CT ABD/PEL W 06/24/2017 7:12 PM FINDINGS: Lung bases: Left lower lobe subsegmental atelectasis. ABDOMEN: Liver: Diffuse hepatic steatosis. Gallbladder and bile ducts: Cholelithiasis without evidence of cholecystitis. No ductal dilation. Pancreas: Unremarkable. No ductal dilation. Spleen: Unremarkable. No splenomegaly. Adrenals: Unremarkable. No mass. Kidneys and ureters: Unremarkable. No obstructing stones. No hydronephrosis. Stomach and bowel: Small ventral abdominal wall hernia containing a loop of incarcerated small bowel, with evidence of associated small bowel obstruction proximal to the herniation. No mucosal thickening. PELVIS: Appendix: No findings to suggest acute appendicitis. Bladder: Right-sided urinary bladder diverticulum. No stones. Reproductive: Unremarkable as visualized. ABDOMEN and PELVIS: Intraperitoneal space: Unremarkable. No free air. No significant fluid collection. Bones/joints: Old healed right-sided rib fractures. Multilevel degenerative changes of the visualized spine. No dislocation. Soft tissues: Small fat containing right inguinal hernia. Vasculature: Redemonstration of infrarenal abdominal aortic aneurysm measuring 5.6 x 6.1 cm in cross-sectional diameter (previously 5.6 x 5.8 cm). There is redemonstration of junctional separation between the main graft component and the left iliac arm, likely correlating with an underlying type IIIA endoleak. Lymph nodes: Unremarkable. No enlarged lymph nodes. IMPRESSION: 1. Small bowel obstruction secondary to incarcerated loop of small bowel within a ventral abdominal wall hernia. Recommend surgical consultation. 2. Interval increase in size of intrarenal abdominal aortic aneurysm, now measuring 5.6 x 6.1 cm in cross-sectional diameter. This is likely secondary to chronic junctional separation between the main graft component and the left iliac arm, likely correlating with underlying type IIIA endoleak. Recommend vascular surgery consultation. 3. Other chronic findings, as above. THIS REPORT CONTAINS FINDINGS THAT MAY BE CRITICAL TO PATIENT CARE. The findings were verbally communicated via telephone conference with RAFAEL DUNCAN at 6:19 PM EDT on 03/10/2018. The findings were acknowledged and understood. To contact [facility] with a general question: Operations Center - [phone] For direct physician to physician contact: Physician Hotline - [phone] [facility] ([facility] Facility ID #[id number])
[2018-03-10 18:26] LABS: ABS Basophils 0.1 10^3/ul (0-0.2); ABS Eosinophils 0.2 10^3/ul (0-0.6); ABS Lymphocytes 0.5 10^3/ul (1.0-4.8); ABS Monocytes 0.5 10^3/ul (0-0.8); ABS Neutrophils 3.5 10^3/ul (1.5-7.7); ABS Nucleated RBC 0 10^3/ul; Eosinophil % 4.5 % (0-6); Hematocrit 34 % (42-52); Hemoglobin 11.2 g/dl (14.0-18.0); Lymphocyte % 10.1 % (25-47); Mean Corpuscular HGB Conc 33 g/dl (31-36); Mean Corpuscular Hemoglobin 29 pg (27-31); Mean Corpuscular Volume 88 fL (80-94); Mean Platelet Volume 8.1 um3 (7.4-10.4); Nucleated Red Blood Cells % 0.1; Platelet Count 178 10^3/ul (150-450); Red Blood Count 3.88 10^6/ul (4.00-5.40); Red Cell Distribution Width 16 % (10.5-15); White Blood Count 4.8 10^3/ul (3.5-10.8)
[2018-03-10 18:31] LABS: INR 1.03 (0.77-1.02)
[2018-03-10 18:45] LABS: EGFR Non-African American 61.4 (>60)
[2018-03-10 20:07] VITALS: BP 135/63
--- NOTE | 2018-03-10 21:58 | CONS ---
CC: Julio César Walter MD; [facility]; Oskar Atkins MD, [facility] * CONSULTATION REPORT: DATE OF CONSULT: 03/10/18 - EMERGENCY DEPT HISTORY: Mr. Vicente is a 68-year-old male who came to the emergency room with acute onset of central abdominal pain occurring approximately 3 hours prior to my seeing him. He had not had that kind of pain before, but this was unusual for him. He was not having any vomiting. He had not had any trauma, accident, or injury. PAST MEDICAL HISTORY: Significant for cardiac surgery as well as aortic stent graft. None of these were recent. He is not anticoagulated other than some aspirin. He denies intestinal surgery. PHYSICAL EXAM: He is an overweight male consistent with stated age. He does not appear to be ill, but he does appear uncomfortable. Abdominal examination reveals that the abdomen is obese and soft and there is a tender mass approximately 5 cm above the umbilicus. After the patient was given some intravenous analgesia, manipulation of this palpable mass was carried out until the hernia was felt to pop into place. There was then a palpable defect of about 2 cm across and herniation could be identified. The abdomen was otherwise benign on exam. There was no peritonitis or guarding. DIAGNOSTIC STUDIES/LAB DATA: Review of the CT scan identifies an incarcerated supraumbilical ventral hernia consistent with that found on examination. IMPRESSION: A 68-year-old male with significant comorbidities who presents with an incarcerated obstructed supraumbilical ventral hernia. This hernia has been reduced in the emergency room after some intravenous analgesic and this has also resulted in resolution of his pain. He is feeling well and will be discharged home. I have discussed this with him and his and he will need elective repair of this hernia so as to minimize the risk of a recurrent incarceration. Given his comorbidities, I recommend that he see his poultry killer who he has not seen in quite some time so that he can have an appropriate evaluation prior to considering elective surgery. Furthermore, the CT scan shows some possible separation at the proximal end of the aortic stent graft and I discussed this with him and he states that the surgeon who put it in down at [facility] has since left the area. They now live in [place] and would be happy to go to [place]. Therefore, I recommend that they call up right away and get an appointment with Dr. Atkins for his evaluation So at this point, he will try to get his stent grafts looked at in the cardiac evaluation and once that has been taken care of, we should be able to arrange an elective surgery to fix his hernia. [id number]/[facility] #: [id number] MTDD
== END | disposition home or self-care (01) ==
LOC: ED 17:08
DX: K40.31 Unilateral inguinal hernia, with obstruction, without gangrene, recurrent (principal); I25.10 Atherosclerotic heart disease of native coronary artery without angina pectoris; I10 Essential (primary) hypertension; Z95.1 Presence of aortocoronary bypass graft; Z79.82 Long term (current) use of aspirin; Z88.1 Allergy status to other antibiotic agents; Z88.8 Allergy status to other drugs, medicaments and biological substances; Z87.891 Personal history of nicotine dependence
CPT/HCPCS: 36415; 74176; 80053; 83605; 83690; 85025; 85610; 86140; 96374; 96375; 96376; 99283; J1170

== ENCOUNTER 2018-04-05 14:32 | Emergency (ER) | payer MEDICARE ==
--- NOTE | 2018-04-05 15:24 | ED ---
GI/ HPI - HPI Summary HPI Summary: This patient is a 68 year old M presenting to [facility] with a chief complaint of blood clots coming out of his Valdes catheter since earlier today. 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 Patient reports that the catheter was clogged earlier but is now flowing again. Patient reports back pain from lying in bed. Patient denies fever, abdominal pains, and chills. Patient was seen and given the Valdes catheter at [facility] in [place], but he does not know his doctors name. - History of Current Complaint Chief Complaint: EDUrogenitalProblems Time Seen by Provider: 04/05/18 15:10 Stated Complaint: GENERAL ILLNESS Hx Obtained From: Patient Onset/Duration: Started Hours Ago - Earlier today, Still Present Severity: Moderate Current Severity: Moderate Pain Intensity: 5 Associated Signs and Symptoms: Positive: Other: - back pain from laying in bed . Negative: Fever, Chills, Abdominal Pain - Additional Pertinent History Primary Care Physician: MARGA - Allergy/Home Medications Allergies/Adverse Reactions: Allergies Allergy/AdvReac Type Severity Reaction Status Date / Time azithromycin Allergy Itching Verified 04/05/18 14:56 niacin Allergy Hives Verified 04/05/18 14:56 PMH/Surg Hx/FS Hx/Imm Hx Endocrine/Hematology History: Reports: Hx Anticoagulant Therapy - 81 MG PO ASA, took this am , Hx Diabetes Denies: Hx Thyroid Disease Cardiovascular History: Reports: Hx Aneurysm - AAA with stent, Hx Angina, Hx Coronary Artery Disease - s/p CABG, Hx Hypercholesterolemia - HLD, Hx Hypertension, Hx Myocardial Infarction, Other Cardiovascular Problems/Disorders - ATHEROSCLEROSIS Respiratory History: Reports: Hx Chronic Obstructive Pulmonary Disease (COPD) Denies: Hx Asthma, Other Respiratory Problems/Disorders GI History: Reports: Hx Gastroesophageal Reflux Disease, Hx Hiatal Hernia Denies: Hx Ulcer History: Reports: Other Problems/Disorders - hx bladder CA Sensory History: Denies: Hx Contacts or Glasses, Hx Hearing Aid Opthamlomology History: Denies: Hx Contacts or Glasses Neurological History: Reports: Hx Migraine Psychiatric History: Reports: Hx Anxiety, Hx Depression - Cancer History Cancer Type, Location and Year: bladder cancer - chemo - 2009 Hx Chemotherapy: Yes - BCG pt did not tolerate so it was d/c'd - Surgical History Surgery Procedure, Year, and Place: cabg x 4 vessels 2008. AAA repair with stent placement 2008. Bilateral inguinal hernia repair. Left eye surgery to repair hanging skin. SCC EXCISION RIGHT NOSE Hx Anesthesia Reactions: No - Immunization History Date of Tetanus Vaccine: Unk Date of Influenza Vaccine: Fall 2013 Infectious Disease History: No Infectious Disease History: Denies: Hx Clostridium Difficile, Hx Hepatitis, Hx Human Immunodeficiency Virus (HIV), Hx of Known/Suspected MRSA, Hx Shingles, Hx Tuberculosis, Hx Known/ Suspected VRE, Hx Known/Suspected VRSA, History Other Infectious Disease, Traveled Outside the [place] in Last 30 Days - Family History Known Family History: Positive: Cardiac Disease, Other - CANCER - Social History Occupation: Disabled Lives: With Family Alcohol Use: None Hx Substance Use: No Substance Use Type: Reports: None Hx Tobacco Use: Yes Smoking Status (MU): Former Smoker Type: Cigarettes Amount Used/How Often: 35+ years, 1ppd Have You Smoked in the Last Year: No Review of Systems Negative: Fever, Chills Negative: Abdominal Pain Positive: hematuria - blood clots coming out of his Valdes catheter Positive: Other - back pain from laying in bed All Other Systems Reviewed And Are Negative: Yes Physical Exam - Summary Physical Exam Summary: VITAL SIGNS: Reviewed. GENERAL: Patient is a well-developed and nourished MALE who is lying comfortable in the stretcher. Patient is not in any acute respiratory distress. HEAD AND FACE: No signs of trauma. No ecchymosis, hematomas or skull depressions. No sinus tenderness. EYES: PERRLA, EOMI x 2, No injected conjunctiva, no nystagmus. EARS: Hearing grossly intact. Ear canals and tympanic membranes are within normal limits. MOUTH: Oropharynx within normal limits. NECK: Supple, trachea is midline, no adenopathy, no JVD, no carotid bruit, no c- spine tenderness, neck with full ROM. CHEST: Symmetric, no tenderness at palpation LUNGS: Clear to auscultation bilaterally. No wheezing or crackles. CVS: Regular rate and rhythm, S1 and S2 present, no murmurs or gallops appreciated. ABDOMEN: Soft, non-tender. No signs of distention. No rebound no guarding, and no masses palpated. Bowel sounds are normal. EXTREMITIES: FROM in all major joints, no edema, no cyanosis or clubbing. NEURO: Alert and oriented x 3. No acute neurological deficits. Speech is normal and follows commands. SKIN: Dry and warm : Circumcised penis, both testicles are descended. No masses are appreciated. Positive cremasteric reflex. Patient has a Valdes catheter in place. There are 2 blood clots in leg bag with 600 CCs of urine. Triage Information Reviewed: Yes Vital Signs On Initial Exam: Initial Vitals Temp Pulse Resp BP Pulse Ox 99.2 F 86 16 141/59 93 04/05/18 14:43 04/05/18 14:43 04/05/18 14:43 04/05/18 14:43 04/05/18 14:43 Vital Signs Reviewed: Yes Diagnostics - Vital Signs Vital Signs Temp Pulse Resp BP Pulse Ox 04/05/18 14:43 99.2 F 86 16 141/59 93 - Laboratory Result Diagrams: 04/05/18 16:28 04/05/18 16:28 Lab Statement: Any lab studies that have been ordered have been reviewed, and results considered in the medical decision making process. GIGU Course/Dx - Course Course Of Treatment: This patient is a 68 year old M presenting to [facility] with a chief complaint of blood clots coming out of his Valdes catheter since earlier today. 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 Patient reports that the catheter was clogged earlier but is now flowing again. Patient reports back pain from lying in bed. Patient denies fever, abdominal pains, and chills. Patient was seen and given the Valdes catheter at [facility] in [place], but he does not know his doctors name. In the ED the patient's Valdes catheter is draining and has 2 very small blood clots approximately 2 mm speech. The patient denies having pain, fevers or chills. Patient has no other complaints. Blood work without any significant abnormality except for a slight decrease in H&H however it is at his baseline. The patient's BU and creatinine also elevated but at his baseline. Therefore since there are no other complaints the patient will be discharged home with follow-up with primary care physician. Patient reports that he will follow-up tomorrow with urology at the [facility]. Patient was given instructed to return to the emergency department if the patient develops hematuria or urinary retention. The patient understands and agrees. - Diagnoses Provider Diagnoses: Painless hematuria Discharge - Sign-Out/Discharge Documenting (check all that apply): Patient Departure - D/C - Discharge Plan Condition: Stable Disposition: HOME Patient Education Materials: Hematuria (ED) Referrals: Edyta Best [Primary Care Provider] - 3 Days Additional Instructions: RETURN TO THE ED FOR ANY WORSENING OR NEW SYMPTOMS. FOLLOW UP WITH YOUR PRIMARY CARE PHYSICIAN WITHIN 3 DAYS. - Billing Disposition and Condition Condition: STABLE Disposition: Home - Attestation Statements Document Initiated by hSaniceibe: Yes Documenting Scribe: Sergei Oreilly Provider For Whom Asya is Documenting (Include Credential): Dawson Dela Cruz MD Scribe Attestation: Sergei Kwong, scribed for Dawson Dela Cruz MD on 04/05/18 at 1845. Scribe Documentation Reviewed: Yes Provider Attestation: The documentation as recorded by the Sergei rangel accurately reflects the service I personally performed and the decisions made by , Dawson Dela Cruz MD
[2018-04-05 16:38] LABS: ABS Basophils 0.1 10^3/ul (0-0.2); ABS Eosinophils 0.2 10^3/ul (0-0.6); ABS Lymphocytes 0.6 10^3/ul (1.0-4.8); ABS Monocytes 0.5 10^3/ul (0-0.8); ABS Neutrophils 4.1 10^3/ul (1.5-7.7); ABS Nucleated RBC 0 10^3/ul; Eosinophil % 3.3 % (0-6); Hematocrit 30 % (42-52); Hemoglobin 9.8 g/dl (14.0-18.0); Lymphocyte % 11.8 % (25-47); Mean Corpuscular HGB Conc 33 g/dl (31-36); Mean Corpuscular Hemoglobin 29 pg (27-31); Mean Corpuscular Volume 89 fL (80-94); Mean Platelet Volume 8.1 fL (7.4-10.4); Nucleated Red Blood Cells % 0; Platelet Count 195 10^3/ul (150-450); Red Blood Count 3.35 10^6/ul (4.00-5.40); Red Cell Distribution Width 16 % (10.5-15); White Blood Count 5.5 10^3/ul (3.5-10.8)
[2018-04-05 16:54] LABS: EGFR Non-African American 42.3 (>60)
[2018-04-05 17:30] VITALS: BP 119/63
== END 2018-04-05 17:30 | disposition home or self-care (01) ==
LOC: ED 14:32
DX: R31.9 Hematuria, unspecified (principal); M54.9 Dorsalgia, unspecified; I25.119 Atherosclerotic heart disease of native coronary artery with unspecified angina pectoris; I10 Essential (primary) hypertension; Z95.1 Presence of aortocoronary bypass graft; Z79.82 Long term (current) use of aspirin; Z85.51 Personal history of malignant neoplasm of bladder; Z88.1 Allergy status to other antibiotic agents; Z88.8 Allergy status to other drugs, medicaments and biological substances; Z87.891 Personal history of nicotine dependence
CPT/HCPCS: 36415; 80053; 85025; 99282

== ENCOUNTER 2018-04-12 13:39 | Emergency (ER) | payer MEDICARE ==
[2018-04-12] MEDS ORDERED: Lidocaine 2% JELLY* 6 ML JELLY TOPICAL ONE (16:22)
--- NOTE | 2018-04-12 16:24 | ED ---
GI/ HPI - HPI Summary HPI Summary: Pt is a 68 y/o M presenting to the ED with a chief complaint of urogenital pain. He has a catheter in and it feels like a spike is going through it, and would rather have it out. He has not seen a urologist yet. He states he is always nauseous, cannot eat because of it. - History of Current Complaint Chief Complaint: EDUrogenitalProblems Time Seen by Provider: 04/12/18 16:10 Stated Complaint: CATH ISSUES Hx Obtained From: Patient Onset/Duration: Started Days Ago, Still Present Timing: Constant Severity: Moderate Current Severity: Moderate Pain Intensity: 8 Additional Locations for Males: Penis Pain Characteristics: Sharp Associated Signs and Symptoms: Positive: Nausea, Change in Appetite - decreased Additional Signs & Symptoms: Positive: Penile Discharge Aggravating Factor(s): Urination, Movement, Deep Breaths, Activity Alleviating Factor(s): Nothing - Additional Pertinent History Primary Care Physician: MARGA - Allergy/Home Medications Allergies/Adverse Reactions: Allergies Allergy/AdvReac Type Severity Reaction Status Date / Time azithromycin Allergy Itching Verified 04/12/18 14:04 niacin Allergy Hives Verified 04/12/18 14:04 PMH/Surg Hx/FS Hx/Imm Hx Previously Healthy: No Endocrine/Hematology History: Reports: Hx Anticoagulant Therapy - 81 MG PO ASA, took this am , Hx Diabetes Denies: Hx Thyroid Disease Cardiovascular History: Reports: Hx Aneurysm - AAA with stent, Hx Angina, Hx Coronary Artery Disease - s/p CABG, Hx Hypercholesterolemia - HLD, Hx Hypertension, Hx Myocardial Infarction, Other Cardiovascular Problems/Disorders - ATHEROSCLEROSIS Respiratory History: Reports: Hx Chronic Obstructive Pulmonary Disease (COPD) Denies: Hx Asthma, Other Respiratory Problems/Disorders GI History: Reports: Hx Gastroesophageal Reflux Disease, Hx Hiatal Hernia Denies: Hx Ulcer History: Reports: Other Problems/Disorders - hx bladder CA Sensory History: Denies: Hx Contacts or Glasses, Hx Hearing Aid Opthamlomology History: Denies: Hx Contacts or Glasses Neurological History: Reports: Hx Migraine Psychiatric History: Reports: Hx Anxiety, Hx Depression - Cancer History Cancer Type, Location and Year: bladder cancer - chemo - 2009 Hx Chemotherapy: Yes - BCG pt did not tolerate so it was d/c'd - Surgical History Surgery Procedure, Year, and Place: cabg x 4 vessels 2008. AAA repair with stent placement 2008. Bilateral inguinal hernia repair. Left eye surgery to repair hanging skin. SCC EXCISION RIGHT NOSE Hx Anesthesia Reactions: No - Immunization History Date of Tetanus Vaccine: Unk Date of Influenza Vaccine: Fall 2013 Infectious Disease History: No Infectious Disease History: Denies: Hx Clostridium Difficile, Hx Hepatitis, Hx Human Immunodeficiency Virus (HIV), Hx of Known/Suspected MRSA, Hx Shingles, Hx Tuberculosis, Hx Known/ Suspected VRE, Hx Known/Suspected VRSA, History Other Infectious Disease, Traveled Outside the [place] in Last 30 Days - Family History Known Family History: Positive: Cardiac Disease, Other - CANCER - Social History Alcohol Use: None Hx Substance Use: No Substance Use Type: Reports: None Hx Tobacco Use: Yes Smoking Status (MU): Former Smoker Type: Cigarettes Amount Used/How Often: 35+ years, 1ppd Have You Smoked in the Last Year: No Review of Systems Negative: Fever Positive: Nausea Positive: burning, discharge, pain All Other Systems Reviewed And Are Negative: Yes Physical Exam - Summary Physical Exam Summary: VITAL SIGNS: Reviewed. GENERAL: Patient is a well-developed and nourished male who is lying comfortable in the stretcher. Patient is not in any acute respiratory distress. HEAD AND FACE: No signs of trauma. No ecchymosis, hematomas or skull depressions. No sinus tenderness. EYES: PERRLA, EOMI x 2, No injected conjunctiva, no nystagmus. EARS: Hearing grossly intact. Ear canals and tympanic membranes are within normal limits. MOUTH: Oropharynx within normal limits. NECK: Supple, trachea is midline, no adenopathy, no JVD, no carotid bruit, no c- spine tenderness, neck with full ROM. CHEST: Symmetric, no tenderness at palpation LUNGS: Clear to auscultation bilaterally. No wheezing or crackles. CVS: Regular rate and rhythm, S1 and S2 present, no murmurs or gallops appreciated. ABDOMEN: Soft, non-tender. No signs of distention. No rebound no guarding, and no masses palpated. Bowel sounds are normal. EXTREMITIES: FROM in all major joints, no edema, no cyanosis or clubbing. NEURO: Alert and oriented x 3. No acute neurological deficits. Speech is normal and follows commands. SKIN: Dry and warm : Chronic acevedo catheter with remnants of adhesive tape which is irritating the tip of the penis. Triage Information Reviewed: Yes Vital Signs On Initial Exam: Initial Vitals Temp Pulse Resp BP Pulse Ox 97 F 77 14 155/51 95 04/12/18 14:05 04/12/18 14:05 04/12/18 14:05 04/12/18 14:05 04/12/18 14:05 Vital Signs Reviewed: Yes Diagnostics - Vital Signs Vital Signs Temp Pulse Resp BP Pulse Ox 04/12/18 14:05 97 F 77 14 155/51 95 - Laboratory Lab Statement: Any lab studies that have been ordered have been reviewed, and results considered in the medical decision making process. GIGU Course/Dx - Course Assessment/Plan: Pt is a 68 y/o M presenting to the ED with a chief complaint of urogenital pain. He has a catheter in and it feels like a spike is going through it, and would rather have it out. He has not seen a urologist yet. He states he is always nauseous, cannot eat because of it. The patient has a remnant of adhesive tape and the tube of the Acevedo catheter just irritating the tip of the penis therefore cleaned and the area, we cleaned the area and we removed the adhesive tape. We applied lidocaine jelly and the symptoms haven't significantly improved. He will follow-up with urology as scheduled. Patient has no other complaints. - Diagnoses Provider Diagnoses: Irritation of penis Discharge - Sign-Out/Discharge Documenting (check all that apply): Patient Departure - Discharge Plan Condition: Stable Disposition: HOME Referrals: Edyta Best [Primary Care Provider] - - Billing Disposition and Condition Condition: STABLE Disposition: Home - Attestation Statements Document Initiated by Shaniceibe: Yes Documenting Scribe: Massiel Ramirez Provider For Whom Asya is Documenting (Include Credential): Dawson Dela Cruz MD. Scribe Attestation: Massiel Kwong scribed for Dawson Dela Cruz MD. on 04/13/18 at 0746. Scribe Documentation Reviewed: Yes Provider Attestation: The documentation as recorded by the shaniceibeMassiel accurately reflects the service I personally performed and the decisions made by me, Dawson Dela Cruz MD. Status of Scribe Document: Viewed
[2018-04-12 17:26] VITALS: BP 153/60
== END 2018-04-12 17:15 | disposition home or self-care (01) ==
LOC: ED 13:39
DX: N48.89 Other specified disorders of penis (principal); I25.119 Atherosclerotic heart disease of native coronary artery with unspecified angina pectoris; I10 Essential (primary) hypertension; Z95.1 Presence of aortocoronary bypass graft; Z79.82 Long term (current) use of aspirin; Z85.51 Personal history of malignant neoplasm of bladder; Z88.1 Allergy status to other antibiotic agents; Z88.8 Allergy status to other drugs, medicaments and biological substances; Z82.49 Family history of ischemic heart disease and other diseases of the circulatory system; Z80.8 Family history of malignant neoplasm of other organs or systems; Z87.891 Personal history of nicotine dependence
CPT/HCPCS: 99282

== ENCOUNTER 2018-10-03 09:18 | Emergency (ER) | payer MEDICARE ==
[2018-10-03 10:17] LABS: Urine Appearance Turbid; Urine Color Red; Urine Specific Gravity 1.025 (1.010-1.030)
[2018-10-03 10:18] LABS: Urine Red Blood Cell 3+(>10/hpf) (Absent); Urine Squamous Epithelial Cell Present (Absent)
[2018-10-03 10:19] LABS: Urine White Blood Cell 2+(11-20/hpf) (Absent)
[2018-10-03 10:20] LABS: Urine Bacteria 2+ (Absent)
--- NOTE | 2018-10-03 10:49 | ED ---
GI/ HPI - HPI Summary HPI Summary: This patient is a 68 year old M presenting to ED with a chief complaint of hematuria since yesterday. He reports passing some small clots. The patient rates the pain 2/10 in severity. Symptoms aggravated by nothing. Symptoms alleviated by nothing. Patient reports small pain to LLQ/groin. Patient denies chills, fevers, nausea, vomiting, painful urination. He states this has happened before. Patient states he has normal prostate and bladder complaints. PMHx of bladder cancer, COPD, DM, aneurysm, angina, CAD, HTN, HLD, [place], GERD, hiatal hernia, but no kidney stones. He is not currently on treatment for his cancer as the last scan showed nothing. He is on O2 at home. The patient is a former smoker, but does not drink or use drugs. PSHx for quadruple bypass, AAA repair with stent placement, bilateral inguinal hernia repair. FHx of cardiac disease and cancer. - History of Current Complaint Chief Complaint: EDUrogenitalProblems Time Seen by Provider: 10/03/18 10:20 Stated Complaint: URINATING BLOOD PER PT Hx Obtained From: Patient Onset/Duration: Started Days Ago - 1 Timing: Lasting Days Severity: Mild Current Severity: Mild Vaginal Bleeding Description: Clots Pain Intensity: 2 Location of Pain: LLQ, Groin Pain Radiates to: LLQ Associated Signs and Symptoms: Positive: Negative - Nausea, vomiting, fever, chills, painful urination Aggravating Factor(s): Nothing Alleviating Factor(s): Nothing - Additional Pertinent History Primary Care Physician: MARGA - Allergy/Home Medications Allergies/Adverse Reactions: Allergies Allergy/AdvReac Type Severity Reaction Status Date / Time azithromycin Allergy Itching Verified 10/03/18 09:23 niacin Allergy Hives Verified 10/03/18 09:23 PMH/Surg Hx/FS Hx/Imm Hx Endocrine/Hematology History: Reports: Hx Anticoagulant Therapy - 81 MG PO ASA, took this am , Hx Diabetes Denies: Hx Thyroid Disease Cardiovascular History: Reports: Hx Aneurysm - AAA with stent, Hx Angina, Hx Coronary Artery Disease - s/p CABG, Hx Hypercholesterolemia - HLD, Hx Hypertension, Hx Myocardial Infarction, Other Cardiovascular Problems/Disorders - ATHEROSCLEROSIS Respiratory History: Reports: Hx Chronic Obstructive Pulmonary Disease (COPD) Denies: Hx Asthma, Other Respiratory Problems/Disorders GI History: Reports: Hx Gastroesophageal Reflux Disease, Hx Hiatal Hernia Denies: Hx Ulcer History: Reports: Other Problems/Disorders - hx bladder CA Sensory History: Denies: Hx Contacts or Glasses, Hx Hearing Aid Opthamlomology History: Denies: Hx Contacts or Glasses Neurological History: Reports: Hx Migraine Psychiatric History: Reports: Hx Anxiety, Hx Depression - Cancer History Cancer Type, Location and Year: bladder cancer - chemo - 2009 Hx Chemotherapy: Yes - BCG pt did not tolerate so it was d/c'd - Surgical History Surgery Procedure, Year, and Place: cabg x 4 vessels 2008. AAA repair with stent placement 2008. Bilateral inguinal hernia repair. Left eye surgery to repair hanging skin. SCC EXCISION RIGHT NOSE Hx Anesthesia Reactions: No - Immunization History Date of Tetanus Vaccine: Unk Date of Influenza Vaccine: Fall 2013 Infectious Disease History: No Infectious Disease History: Denies: Hx Clostridium Difficile, Hx Hepatitis, Hx Human Immunodeficiency Virus (HIV), Hx of Known/Suspected MRSA, Hx Shingles, Hx Tuberculosis, Hx Known/ Suspected VRE, Hx Known/Suspected VRSA, History Other Infectious Disease, Traveled Outside the [place] in Last 30 Days - Family History Known Family History: Positive: Cardiac Disease, Other - CANCER - Social History Alcohol Use: None Hx Substance Use: No Substance Use Type: Reports: None Hx Tobacco Use: Yes Smoking Status (MU): Former Smoker Type: Cigarettes Amount Used/How Often: 35+ years, 1ppd Have You Smoked in the Last Year: No Review of Systems Negative: Fever, Chills Positive: Abdominal Pain - LLQ/groin. Negative: Vomiting, Nausea Positive: hematuria. Negative: dysuria All Other Systems Reviewed And Are Negative: Yes Physical Exam - Summary Physical Exam Summary: GENERAL: Patient is a well-developed and nourished M who is lying comfortable in the stretcher. Patient is not in any acute respiratory distress. HEAD AND FACE: Normocephalic EYES: PERRLA, EOMI x 2. EARS: Hearing grossly intact. MOUTH: Oropharynx within normal limits. NECK: Supple, trachea is midline, no adenopathy, no JVD, no carotid bruit. CHEST: Symmetric, no tenderness at palpation LUNGS: Clear to auscultation bilaterally. No wheezing or crackles. CVS: Regular rate and rhythm, S1 and S2 present, no murmurs or gallops appreciated. ABDOMEN: Soft, non-tender. Bowel sounds are normal. No abnormal abdominal pulsations. EXTREMITIES: Full ROM in all major joints, no edema, no cyanosis or clubbing. NEURO: Alert and oriented x 3. No acute neurological deficits. Speech is normal and follows commands. SKIN: Dry and warm, scar from previous [id number] surgery Triage Information Reviewed: Yes Vital Signs On Initial Exam: Initial Vitals Temp Pulse Resp BP Pulse Ox 98.6 F 68 16 173/75 97 10/03/18 09:20 10/03/18 09:20 10/03/18 09:20 10/03/18 09:20 10/03/18 09:20 Vital Signs Reviewed: Yes Diagnostics - Vital Signs Vital Signs Temp Pulse Resp BP Pulse Ox 10/03/18 10:14 62 154/72 97 10/03/18 10:00 63 97 10/03/18 09:45 70 97 10/03/18 09:44 73 158/84 97 10/03/18 09:20 98.6 F 68 16 173/75 97 - Laboratory Lab Results: Lab Results 10/03/18 Range/Units 09:54 Urine Color Red A Urine Appearance Turbid Ur Specific [place] 1.025 (1.010-1.030) Urine WBC (Auto) 2+(11-20/hpf) A (Absent) Urine RBC (Auto) 3+(>10/hpf) A (Absent) Ur Squamous Epith Cells Present A (Absent) Urine Bacteria 2+ A (Absent) Result Diagrams: 10/03/18 11:06 10/03/18 11:06 Lab Statement: Any lab studies that have been ordered have been reviewed, and results considered in the medical decision making process. - Ultrasound No standard instances Ultrasound Interpretation Completed By: Radiologist Summary of Ultrasound Findings: 1. Trabeculated bladder wall with either enlarged prostate protruding into the urinary bladder or primary bladder neoplasm similar in appearance to the April 02, 2018 CT. 2. Large post void residual volume in the urinary bladder. 3. Negative for hydronephrosis. Unremarkable renal ultrasound. 4. Splenome[address]. Dr. Garcia has reviewed this radiology report. Re-Evaluation - Re-Evaluation First Eval Re-Evaluation Time: 13:35 Comment: Discussed results with patient and plan to transfer to [facility] with dx of hematuria with urinary retention. Patient understands and agrees with this plan. GIGU Course/Dx - Course Course Of Treatment: This patient is a 68 year old M presenting to ED with a chief complaint of hematuria since yesterday. UA and bloodwork obtained. Patient was found to have urinary retention. In the ED, patient was given a 3- way Valdes cath for continuous bladder irrigation with bloody output and clots. Patient care was discussed with Dr. Escalona, urologist, at [facility] who recommended the patient be transferred to their ED under Dr. Welsh. The patient will be transferred with dx of hematuria and urinary retention. He is stable for transfer. - Diagnoses Provider Diagnoses: Hematuria, Urinary retention - Physician Notifications Discussed Care Of Patient With: Savage Escalona Time Discussed With Above Provider: 13:39 Instructed by Provider To: Transfer - Consulted with Dr. Escalona (urologist) at [facility] who recommended to transfer the patient to the ER under the care of Dr. Jordan Welsh (ED physician). Discharge - Sign-Out/Discharge Documenting (check all that apply): Patient Departure - Transfer Patient Received Moderate/Deep Sedation with Procedure: No - Discharge Plan Condition: Fair Disposition: TRANS HIGHER LVL OF CARE FAC Referrals: Edyta Best [Primary Care Provider] - - Billing Disposition and Condition Condition: FAIR Disposition: Trans Higher Lvl of Care Fac - Attestation Statements Document Initiated by Asya: Yes Documenting Scribe: Ja Woods Provider For Whom Asya is Documenting (Include Credential): Eugenia Garcia MD Scribe Attestation: IJa, scribed for Eugenia Garcia MD on 10/03/18 at 1417. Scribe Documentation Reviewed: Yes Provider Attestation: The documentation as recorded by the Ja rangel accurately reflects the service I personally performed and the decisions made by me, Eugenia Garcia MD Status of Scribe Document: Viewed
[2018-10-03 11:28] LABS: Activated Partial Thrombo Time 31.4 seconds (26.0-36.3); INR 1.1 (0.82-1.09)
[2018-10-03 11:34] LABS: ABS Basophils 0.1 10^3/ul (0-0.2); ABS Eosinophils 0.1 10^3/ul (0-0.6); ABS Lymphocytes 0.5 10^3/ul (1.0-4.8); ABS Monocytes 0.4 10^3/ul (0-0.8); ABS Neutrophils 3.2 10^3/ul (1.5-7.7); Eosinophil % 3.1 %; Hematocrit 30 % (42-52); Hemoglobin 9.5 g/dL (14.0-18.0); Lymphocyte % 11.3 %; Mean Corpuscular HGB Conc 32 g/dL (31-36); Mean Corpuscular Hemoglobin 27 pg (27-31); Mean Corpuscular Volume 85 fL (80-94); Mean Platelet Volume 7.7 fL (7.4-10.4); Nucleated Red Blood Cells % 0.1; Platelet Count 197 10^3/uL (150-450); Red Blood Count 3.51 10^6 /uL (4.18-5.48); Red Cell Distribution Width 17 % (10.5-15); White Blood Count 4.3 10^3/uL (3.5-10.8)
[2018-10-03] MEDS ORDERED: NS 0.9% 1000 ML** 1,000 ML IV ONE (13:43)
[2018-10-03] MEDS ORDERED: Ondansetron INJ* 2 MG/ML VIAL IV ONE (13:43)
[2018-10-03] MEDS ORDERED: Morphine 4 MG/ML VIAL (1 ml) 4 MG/ML VIAL IV ONE ×2 (13:43→14:58)
[2018-10-03 13:46] LABS: Albumin 3.9 g/dL (3.2-5.2); Albumin/Globulin Ratio 1.5 (1-3); BUN/Creatinine Ratio 17.5 (8-20); Calcium 9.2 mg/dL (8.6-10.3); EGFR African American 77.3 (>60); EGFR Non-African American 63.9 (>60); Globulin 2.6 g/dL (2-4); Potassium 4.1 mmol/L (3.5-5.0); Total Bilirubin 0.5 mg/dL (0.2-1.0); Total Protein 6.5 g/dL (6.4-8.9)
[2018-10-03 15:06] VITALS: BP 178/75
== END 2018-10-03 15:05 | disposition short-term general hospital (02) ==
LOC: ED 09:18
DX: R31.9 Hematuria, unspecified (principal); R33.9 Retention of urine, unspecified; Z85.51 Personal history of malignant neoplasm of bladder; R10.32 Left lower quadrant pain; J44.9 Chronic obstructive pulmonary disease, unspecified; E11.9 Type 2 diabetes mellitus without complications; I72.9 Aneurysm of unspecified site; I20.9 Angina pectoris, unspecified; Z79.01 Long term (current) use of anticoagulants; I25.10 Atherosclerotic heart disease of native coronary artery without angina pectoris; Z95.5 Presence of coronary angioplasty implant and graft; Z87.891 Personal history of nicotine dependence
CPT/HCPCS: 36415; 76770; 80053; 81003; 83605; 85025; 85610; 85730; 86850; 86900; 86901; 87040; 87086; 96374; 96375; 96376; 99285; J2270; J2405

== ENCOUNTER 2019-02-11 19:23 | Emergency (ER) | payer MEDICARE ==
[2019-02-11] MEDS ORDERED: cefTRIAXone(*) 1 GM in NS 0.9% 50 ML* 50 ML IVPB ONE (19:41)
--- NOTE | 2019-02-11 19:48 | ED ---
Shortness of Breath - HPI Summary HPI Summary: This pt is a 69 Y/O M presenting to [facility] brought in by EMS for SOB that started around 1835 today. He states that he had shrimp and was sitting at dinner when the onset began. He states that he is on an ABX for a UTI that has side effects of SOB and wheezing. He states that he took his prescribed inhalers as usual. A month ago he was about to receive a surgery when he passed out and was found to have water in my lungs. He states that he does not have a SHx of smoking cigarettes. He currently wears 4 L of oxygen at home 02/12 due to a heart surgery he had. He takes inhalers when he becomes SOB as a at home remedy. He states that he is currently feeling better. He has a temperature of 100.7 F. - History of Current Complaint Chief Complaint: EDShortnessOfBreath Time Seen by Provider: 02/11/19 19:34 Hx Obtained From: Patient Onset/Duration: Sudden Onset Timing: Constant Current Severity: None Dyspnea At: Rest Aggravating Factors: Nothing Alleviating Factors: Other - prescribed inhalers Associated Signs & Symptoms: Wheezing, Fever - 100.7 Related History: Similar Episode - about a month ago while receiving surgery - Allergy/Home Medications Allergies/Adverse Reactions: Allergies Allergy/AdvReac Type Severity Reaction Status Date / Time azithromycin Allergy Itching Verified 10/03/18 09:23 niacin Allergy Hives Verified 10/03/18 09:23 Home Medications: Home Medications Albuterol HFA INHALER* [Ventolin HFA Inhaler*] 2 puff INH Q6H PRN 02/11/19 [ History Confirmed 02/11/19] Alogliptin (NF) [Nesina (NF)] 25 mg PO DAILY 02/11/19 [History Confirmed ] Cetirizine* [ZyrTEC 10 MG TAB*] 10 mg PO BEDTIME PRN 02/11/19 [History Confirmed 02/11/19] Cholecalciferol TAB* [Vitamin D TAB*] 3,000 unit PO DAILY 02/11/19 [History Confirmed 02/11/19] Ferrous Sulfate TAB* 325 mg PO BID 02/11/19 [History Confirmed 02/11/19] Furosemide TAB* [Lasix TAB*] 40 mg PO BID 02/11/19 [History Confirmed 02/11/19] Gabapentin CAP(*) [Neurontin 300 CAP(*)] 300 mg PO TID 02/11/19 [History Confirmed 02/11/19] Meloxicam(NF) [Mobic(NF)] 15 mg PO DAILY 02/11/19 [History Confirmed 02/11/19] Mometasone 220 MCG MDI * [Asmanex 220 MCG MDI *] 1 puff INH BID 02/11/19 [ History Confirmed 02/11/19] Tiotropium Brom/Olodaterol [Stiolto Respimat Inh Tennga (60 puff)] 2 puff INH DAILY 02/11/19 [History Confirmed 02/11/19] PMH/Surg Hx/FS Hx/Imm Hx Previously Healthy: Yes Endocrine/Hematology History: Reports: Hx Anticoagulant Therapy - 81 MG PO ASA, took this am , Hx Diabetes Denies: Hx Thyroid Disease Cardiovascular History: Reports: Hx Aneurysm - AAA with stent, Hx Angina, Hx Coronary Artery Disease - s/p CABG, Hx Hypercholesterolemia - HLD, Hx Hypertension, Hx Myocardial Infarction, Other Cardiovascular Problems/Disorders - ATHEROSCLEROSIS Respiratory History: Reports: Hx Chronic Obstructive Pulmonary Disease (COPD) Denies: Hx Asthma, Other Respiratory Problems/Disorders GI History: Reports: Hx Gastroesophageal Reflux Disease, Hx Hiatal Hernia Denies: Hx Ulcer History: Reports: Other Problems/Disorders - hx bladder CA Sensory History: Denies: Hx Contacts or Glasses, Hx Hearing Aid Opthamlomology History: Denies: Hx Contacts or Glasses Neurological History: Reports: Hx Migraine Psychiatric History: Reports: Hx Anxiety, Hx Depression - Cancer History Cancer Type, Location and Year: bladder cancer - chemo - 2009 Hx Chemotherapy: Yes - BCG pt did not tolerate so it was d/c'd - Surgical History Surgery Procedure, Year, and Place: cabg x 4 vessels 2008. AAA repair with stent placement 2008. Bilateral inguinal hernia repair. Left eye surgery to repair hanging skin. SCC EXCISION RIGHT NOSE Hx Anesthesia Reactions: No - Immunization History Date of Tetanus Vaccine: Unk Date of Influenza Vaccine: Fall 2013 Infectious Disease History: No Infectious Disease History: Denies: Hx Clostridium Difficile, Hx Hepatitis, Hx Human Immunodeficiency Virus (HIV), Hx of Known/Suspected MRSA, Hx Shingles, Hx Tuberculosis, Hx Known/ Suspected VRE, Hx Known/Suspected VRSA, History Other Infectious Disease, Traveled Outside the [place] in Last 30 Days - Family History Known Family History: Positive: Cardiac Disease, Other - CANCER - Social History Alcohol Use: None Hx Substance Use: No Substance Use Type: Reports: None Hx Tobacco Use: Yes Smoking Status (MU): Former Smoker Type: Cigarettes Amount Used/How Often: 35+ years, 1ppd Have You Smoked in the Last Year: No Review of Systems Positive: Fever - 100.7 F Positive: Shortness Of Breath, Other - wheezing All Other Systems Reviewed And Are Negative: Yes Physical Exam - Summary Physical Exam Summary: Appearance: Well-appearing, Well-nourished, lying in bed comfortably Skin: Warm, dry, no obvious rash Eyes: sclera anicteric, no conjunctival pallor ENT: mucous membranes moist, pharynx appears normal, No JVD Neck: Supple, nontender Respiratory: Minimal expiratory wheezing with minimal effort and no consolidation Cardiovascular: Normal S1, S2. No murmurs. Normal distal pulses in tibial and radial bilaterally. Abdomen: Soft, nontender, normal active bowel sounds present Musculoskeletal: Normal, Strength/ROM Intact, Trace pitting edema bilaterally LE Neurological: A&Ox3, awake and alert, mentation is normal, speech is fluent and appropriate Psychiatric: affect is normal, does not appear anxious or depressed Triage Information Reviewed: Yes Vital Signs On Initial Exam: Initial Vitals Temp Pulse Resp BP Pulse Ox 100.7 F 76 24 174/76 96 02/11/19 19:35 02/11/19 19:35 02/11/19 19:35 02/11/19 19:35 02/11/19 19:35 Vital Signs Reviewed: Yes Procedures - Sedation Patient Received Moderate/Deep Sedation with Procedure: No Diagnostics - Vital Signs Vital Signs Temp Pulse Resp BP Pulse Ox 02/11/19 19:35 100.7 F 76 24 174/76 96 - Laboratory Result Diagrams: 02/11/19 20:14 02/11/19 20:13 Lab Statement: Any lab studies that have been ordered have been reviewed, and results considered in the medical decision making process. - Radiology CXR Radiology Interpretation Completed By: Radiologist Summary of Radiographic Findings: No acute process. Pending offical review. - EKG 2000 Cardiac Rate: NL - 75 BPM EKG Rhythm: Sinus Rhythm ST Segment: Normal Ectopy: None Summary of EKG Findings: NSR at 75 BPM, P waves, QRS complex, and T waves are within normal limits, T waves and intervals are normal, no ischemic changes. This is a normal EKG. Interpreted by Dr. Dong at 200202/11/19. Course/Dx - Course Course Of Treatment: This pt is a 69 Y/O M presenting to [facility] brought in by EMS for SOB that started around 1835 today. He states that he had shrimp and was sitting at dinner when the onset began. He states that he is on an ABX for a UTI that has side effects of SOB and wheezing. He denies a SHx of smoking. His PE found that he has No JVD, Trace pitting edema bilaterally LE, Minimal expiratory wheezing with minimal effort and no consolidation. During his ED course he received Rocephin. His EKG at 2000 shows NSR at 75 BPM, P waves, QRS complex, and T waves are within normal limits, T waves and intervals are normal , no ischemic changes. This is a normal EKG. His CXR shows no acute processes. He has abnormal labratory values in the following areas: RBC, Hgb, Hct, RDW, MPV, Absolute Neuts, Absolute Lymphs, INR, APTT. He will be diagnoes with anemia and COPD. He will be discharged home. - Diagnoses Provider Diagnoses: COPD (chronic obstructive pulmonary disease), Anemia Discharge ED - Sign-Out/Discharge Documenting (check all that apply): Patient Departure - discharge - Discharge Plan Condition: Good Disposition: HOME Prescriptions: predniSONE TAB* [Deltasone 20 MG TAB*] 40 mg PO DAILY 5 Days #10 tab Patient Education Materials: COPD (Chronic Obstructive Pulmonary Disease) (ED) , Anemia (ED) Referrals: Edyta Best [Primary Care Provider] - 4 Days Additional Instructions: Your blood work showed that you are getting more anemic. This does not need any acute treatment and your regular doctor may be following it, but you should ask about it at followup. Your chest xray was ok, and your breathing has improved, so I think it is ok for you to go home. I am putting you on prednisone for a few days which should help your breathing but will make your blood sugar run high. As long as it stays below 300, you can just continue your normal insulin, but if it goes above that you will need to take somewhat more insulin. I am not adding any new antibiotics to your regiment at this point. - Billing Disposition and Condition Condition: GOOD Disposition: Home - Attestation Statements Document Initiated by Asya: Yes Documenting Shaniceibe: Roldan Lazar Provider For Whom Asya is Documenting (Include Credential): Kiran Dong MD Scribe Attestation: IRoldan, scribed for Kiran Dong MD on 03/17/19 at 1853. Scribe Documentation Reviewed: Yes Provider Attestation: The documentation as recorded by the Roldan rangel accurately reflects the service I personally performed and the decisions made by me, Kiran Dong MD Status of Scribe Document: Viewed
[2019-02-11 20:28] LABS: ABS Basophils 0.1 10^3/ul (0-0.2); ABS Eosinophils 0.1 10^3/ul (0-0.6); ABS Lymphocytes 0.2 10^3/ul (1.0-4.8); ABS Monocytes 0.5 10^3/ul (0-0.8); ABS Neutrophils 9.1 10^3/ul (1.5-7.7); Eosinophil % 1.2 %; Hematocrit 26 % (42-52); Hemoglobin 8.2 g/dL (14.0-18.0); Lymphocyte % 2.5 %; Mean Corpuscular HGB Conc 32 g/dL (31-36); Mean Corpuscular Hemoglobin 26 pg (27-31); Mean Corpuscular Volume 82 fL (80-94); Mean Platelet Volume 7.2 fL (7.4-10.4); Platelet Count 314 10^3/uL (150-450); Red Blood Count 3.12 10^6 /uL (4.18-5.48); Red Cell Distribution Width 18 % (10-15); White Blood Count 10.1 10^3/uL (3.5-10.8)
[2019-02-11 20:39] LABS: Activated Partial Thrombo Time 38.1 seconds (26.0-38.0); INR 1.19 (0.82-1.09)
[2019-02-11 20:50] LABS: Troponin I 0.02 ng/mL (<0.04)
[2019-02-11 20:59] LABS: Albumin 3.9 g/dL (3.2-5.2); Albumin/Globulin Ratio 1.3 (1-3); BUN/Creatinine Ratio 18.2 (8-20); Calcium 9.2 mg/dL (8.6-10.3); EGFR African American 54.5 (>60); Globulin 2.9 g/dL (2-4); Potassium 3.4 mmol/L (3.5-5.0); Total Bilirubin 0.5 mg/dL (0.2-1.0); Total Protein 6.8 g/dL (6.4-8.9)
[2019-02-11 21:00] LABS: Urine Appearance Turbid; Urine Bacteria 1+ (Absent); Urine Bilirubin Negative (Negative); Urine Blood 3+ (Negative); Urine Color Yellow; Urine Glucose 3+(>=500 mg/dL) (Negative); Urine Ketones Negative (Negative); Urine Nitrite Negative (Negative); Urine Protein 1+(30 mg/dL) (Negative); Urine Red Blood Cell 3+(>10/hpf) (Absent); Urine Specific Gravity 1.009 (1.010-1.030); Urine Urobilinogen Negative (Negative); Urine White Blood Cell 3+(>20/hpf) (Absent)
[2019-02-11] MEDS ORDERED: predniSONE TAB* 20 MG PO ONE (21:03)
[2019-02-11 21:21] VITALS: BP 141/80
== END 2019-02-11 21:48 | disposition home or self-care (01) ==
LOC: ED 19:23
DX: J44.9 Chronic obstructive pulmonary disease, unspecified (principal); D64.9 Anemia, unspecified; R06.02 Shortness of breath; R50.9 Fever, unspecified; I25.10 Atherosclerotic heart disease of native coronary artery without angina pectoris; I25.2 Old myocardial infarction; I10 Essential (primary) hypertension; E78.00 Pure hypercholesterolemia, unspecified; K21.9 Gastro-esophageal reflux disease without esophagitis; F41.9 Anxiety disorder, unspecified; F32.9 Major depressive disorder, single episode, unspecified; Z95.5 Presence of coronary angioplasty implant and graft; Z87.891 Personal history of nicotine dependence; Z79.01 Long term (current) use of anticoagulants; Z79.899 Other long term (current) drug therapy; Z86.79 Personal history of other diseases of the circulatory system
CPT/HCPCS: 36415; 71046; 80053; 81003; 81015; 83605; 84484; 85025; 85610; 85730; 87040; 87086; 93005; 96365; 99284; J0696; J7512

== ENCOUNTER 2019-12-11 16:21 | Observation (INO) ==
[2019-12-11 16:48] LABS: ABS Basophils 0.2 10^3/ul (0-0.2); ABS Eosinophils 0.3 10^3/ul (0-0.6); ABS Lymphocytes 0.7 10^3/ul (1.0-4.8); ABS Monocytes 0.7 10^3/ul (0-0.8); Eosinophil % 2.5 %; Hematocrit 32 % (42-52); Hemoglobin 10.7 g/dL (14.0-18.0); Lymphocyte % 6.7 %; Mean Corpuscular HGB Conc 33 g/dL (31-36); Mean Corpuscular Hemoglobin 28 pg (27-31); Mean Corpuscular Volume 83 fL (80-94); Mean Platelet Volume 7.6 fL (7.4-10.4); Platelet Count 287 10^3/uL (150-450); Red Blood Count 3.87 10^6 /uL (4.18-5.48); Red Cell Distribution Width 18 % (10-15); White Blood Count 10.6 10^3/uL (3.5-10.8)
[2019-12-11 16:53] LABS: INR 1.19 (0.82-1.09)
[2019-12-11 17:09] LABS: Albumin 4.1 g/dL (3.2-5.2); Calcium 8.6 mg/dL (8.6-10.3); Potassium 3.9 mmol/L (3.5-5.0); Total Bilirubin 0.6 mg/dL (0.2-1.0)
[2019-12-11 17:15] LABS: Albumin/Globulin Ratio 1.1 (1-3); BUN/Creatinine Ratio 20.6 (8-20); EGFR African American 26.1 (>60); EGFR Non-African American 21.6 (>60); Globulin 3.7 g/dL (2-4); Total Protein 7.8 g/dL (6.4-8.9)
[2019-12-11] MEDS ORDERED: NS 0.9% 1000 ml BAG 1,000 ML IV ONE (17:23)
[2019-12-11] MEDS ORDERED: Ondansetron 4 mg VIAL 2 MG/ML 2 ml VIAL IV ONE (18:48)
[2019-12-11] MEDS ORDERED: Ondansetron 4 mg VIAL 2 MG/ML 2 ml VIAL IV PRN (20:02)
[2019-12-11] MEDS ORDERED: Dextrose 50% Syringe 50 ml 25 GM/50 ML SYRINGE IV PUSH PRN (20:15)
[2019-12-11] MEDS ORDERED: Albuterol HFA INHALER 8 gm MDI INH PRN (20:15)
[2019-12-11] MEDS: Heparin 5000 UNITS/ML 1 mL VIAL SUBCUT SCH (22:27)
[2019-12-12 06:30] LABS: BUN/Creatinine Ratio 20.5 (8-20); Calcium 8.1 mg/dL (8.6-10.3); EGFR African American 27.5 (>60); EGFR Non-African American 22.8 (>60); Potassium 3.7 mmol/L (3.5-5.0)
[2019-12-12] MEDS: Heparin 5000 UNITS/ML 1 mL VIAL SUBCUT SCH ×2 (08:20→15:03)
[2019-12-12] MEDS ORDERED: Aspirin EC 81 mg TAB.EC (enteric coated) PO SCH (09:00)
[2019-12-12 15:35] VITALS: BP 125/54
== END 2019-12-12 16:20 | disposition home or self-care (01) ==
LOC: ED 16:21 → MEDTELE 16:21
PROVIDERS: ADMIT Nurse Practitioner Acute Care; ATTEND Internal Medicine

== ENCOUNTER 2019-12-27 21:22 | Inpatient (IN) ==
[2019-12-27 23:36] LABS: ABS Eosinophils 0.1 10^3/ul (0-0.6); ABS Lymphocytes 0.2 10^3/ul (1.0-4.8); ABS Monocytes 0.5 10^3/ul (0-0.8); ABS Neutrophils 4.3 10^3/ul (1.5-7.7); Hematocrit 26 % (42-52); Hemoglobin 8.7 g/dL (14.0-18.0); Mean Corpuscular HGB Conc 33 g/dL (31-36); Mean Corpuscular Hemoglobin 28 pg (27-31); Mean Corpuscular Volume 83 fL (80-94); Mean Platelet Volume 8.3 fL (7.4-10.4); Nucleated Red Blood Cells % 0.1; Platelet Count 195 10^3/uL (150-450); Red Blood Count 3.14 10^6 /uL (4.18-5.48); Red Cell Distribution Width 18 % (10-15); White Blood Count 5.1 10^3/uL (3.5-10.8)
[2019-12-27 23:45] LABS: INR 1.33 (0.82-1.09)
[2019-12-27 23:53] LABS: ALT 20 U/L (7-52); AST 17 U/L (13-39); Albumin 3.3 g/dL (3.2-5.2); Albumin/Globulin Ratio 0.9 (1-3); Alkaline Phosphatase 306 U/L (34-104); Anion Gap 16 mmol/L (2-11); Blood Urea Nitrogen 100 mg/dL (6-24); CO2 Carbon Dioxide 18 mmol/L (22-32); Calcium 7.5 mg/dL (8.6-10.3); Chloride 94 mmol/L (101-111); EGFR African American 10.8 (>60); Globulin 3.7 g/dL (2-4); Glucose 307 mg/dL (70-100); Magnesium 1.4 mg/dL (1.9-2.7); Potassium 4.1 mmol/L (3.5-5.0); Sodium 128 mmol/L (135-145)
[2019-12-28] LABS: Urine Appearance Turbid; Urine Bilirubin Negative (Negative); Urine Blood 3+ (Negative); Urine Color Yellow; Urine Glucose Negative (Negative); Urine Ketones Negative (Negative); Urine Nitrite Negative (Negative); Urine Protein 2+(100 mg/dL) (Negative); Urine Urobilinogen Negative (Negative)
[2019-12-28 00:01] LABS: Troponin I 0.03 ng/mL (<0.03)
[2019-12-28] MEDS ORDERED: NS 0.9% 1000 ml BAG 1,000 ML IV ONE (00:07)
[2019-12-28 00:14] LABS: Urine Bacteria 1+ (Absent); Urine Red Blood Cell 3+(>10/hpf) (Absent); Urine White Blood Cell 3+(>20/hpf) (Absent)
[2019-12-28 00:14] LABS: TSH Ultra Thyroid Stim Horm 0.55 mcIU/mL (0.34-5.60)
[2019-12-28] MEDS ORDERED: cefTRIAXone 1 gm/50 mL NS BAG 1 GM/50 ML BAG IVPB ONE (01:45)
[2019-12-28] MEDS ORDERED: NS 0.9% 1000 ml BAG 1,000 ML IV SCH (05:00)
[2019-12-28] MEDS ORDERED: Dextrose 50% Syringe 50 ml 25 GM/50 ML SYRINGE IV PUSH PRN ×2 (05:13→21:04)
[2019-12-28] MEDS ORDERED: Albuterol HFA INHALER 8 gm MDI INH PRN (07:06)
[2019-12-28 07:46] LABS: ABS Lymphocytes 0.3 10^3/ul (1.0-4.8); ABS Monocytes 0.5 10^3/ul (0-0.8); Hematocrit 26 % (42-52); Hemoglobin 8.9 g/dL (14.0-18.0); Lymphocyte % 5.4 %; Mean Corpuscular HGB Conc 34 g/dL (31-36); Mean Corpuscular Hemoglobin 29 pg (27-31); Mean Corpuscular Volume 83 fL (80-94); Mean Platelet Volume 7.7 fL (7.4-10.4); Platelet Count 192 10^3/uL (150-450); Red Blood Count 3.12 10^6 /uL (4.18-5.48); Red Cell Distribution Width 18 % (10-15); White Blood Count 4.9 10^3/uL (3.5-10.8)
[2019-12-28 08:10] LABS: Albumin 3.2 g/dL (3.2-5.2); Albumin/Globulin Ratio 0.9 (1-3); BUN/Creatinine Ratio 15.6 (8-20); Calcium 7.3 mg/dL (8.6-10.3); EGFR African American 10.9 (>60); Globulin 3.7 g/dL (2-4); Potassium 3.9 mmol/L (3.5-5.0); Total Bilirubin 0.8 mg/dL (0.2-1.0); Total Protein 6.9 g/dL (6.4-8.9)
[2019-12-28] MEDS ORDERED: Magnesium Sulf 4 GM/100 ML IV 4,000 MG/100 ML BAG IVPB ONE (08:45)
[2019-12-28] MEDS ORDERED: Tiotropium Brom/Olodaterol MDI INH SCH (09:00)
[2019-12-28] MEDS ORDERED: Omeprazole 20 mg CAP (NF) PO SCH (09:00)
[2019-12-28] MEDS: Aspirin EC 81 mg TAB.EC (enteric coated) PO SCH (09:12)
[2019-12-28] MEDS: Tiotropium Brom/Olodaterol MDI INH SCH (12:06)
[2019-12-28] MEDS: Sodium Bicarb 650 mg (ANTACID) TAB PO SCH ×2 (12:33→17:22)
[2019-12-28 12:41] LABS: Urine Creatinine Concentration 67.81 mg/dL
[2019-12-28] MEDS ORDERED: cefTRIAXone 1 gm/50 mL NS BAG 1 GM/50 ML BAG IVPB SCH (21:00)
[2019-12-28 21:56] LABS: Magnesium 1.4 mg/dL (1.9-2.7)
[2019-12-29] MEDS: Albuterol/Ipratropium NEB.SOL (2.5/0.5 MG) 3 ML NEB.SOLN INH PRN (00:05)
[2019-12-29] MEDS ORDERED: NS 0.9% 1000 ml BAG 1,000 ML IV SCH (00:15)
[2019-12-29] MEDS ORDERED: Piperacillin/Tazobac ADVAN 3.375 GM in NS 0.9% 100 ml BAG 100 ML IVPB ONE (00:16)
[2019-12-29 01:00] LABS: ABS Eosinophils 0.1 10^3/ul (0-0.6); ABS Lymphocytes 0.3 10^3/ul (1.0-4.8); ABS Monocytes 0.6 10^3/ul (0-0.8); ABS Neutrophils 4.3 10^3/ul (1.5-7.7); Hematocrit 24 % (42-52); Hemoglobin 8.1 g/dL (14.0-18.0); Lymphocyte % 6.4 %; Mean Corpuscular HGB Conc 34 g/dL (31-36); Mean Corpuscular Hemoglobin 29 pg (27-31); Mean Corpuscular Volume 84 fL (80-94); Mean Platelet Volume 8.3 fL (7.4-10.4); Platelet Count 195 10^3/uL (150-450); Red Blood Count 2.83 10^6 /uL (4.18-5.48); Red Cell Distribution Width 18 % (10-15); White Blood Count 5.3 10^3/uL (3.5-10.8)
[2019-12-29] MEDS ORDERED: Cefepime 1 GM in NS 0.9% 50 ML 50 ML IVPB SCH (01:00)
[2019-12-29] MEDS ORDERED: Zosyn per Pharmacy NOTE FOLLOW UP SCH (01:00)
[2019-12-29 01:01] LABS: Albumin 2.9 g/dL (3.2-5.2); Albumin/Globulin Ratio 0.8 (1-3); Calcium 7.4 mg/dL (8.6-10.3); EGFR African American 10.2 (>60); EGFR Non-African American 8.4 (>60); Globulin 3.5 g/dL (2-4); Potassium 3.8 mmol/L (3.5-5.0); Total Bilirubin 0.6 mg/dL (0.2-1.0); Total Protein 6.4 g/dL (6.4-8.9)
[2019-12-29 01:37] LABS: Urine Appearance Turbid; Urine Bilirubin Negative (Negative); Urine Blood 3+ (Negative); Urine Color Yellow; Urine Glucose 1+(50 mg/dL) (Negative); Urine Ketones Negative (Negative); Urine Nitrite Negative (Negative); Urine Protein 2+(100 mg/dL) (Negative); Urine Urobilinogen Negative (Negative)
[2019-12-29 01:43] LABS: Urine Bacteria Absent (Absent); Urine Red Blood Cell 3+(>10/hpf) (Absent); Urine White Blood Cell 3+(>20/hpf) (Absent)
[2019-12-29 03:30] LABS: ABS Eosinophils 0.1 10^3/ul (0-0.6); ABS Lymphocytes 0.3 10^3/ul (1.0-4.8); ABS Monocytes 0.6 10^3/ul (0-0.8); ABS Neutrophils 4.6 10^3/ul (1.5-7.7); Eosinophil % 0.9 %; Hematocrit 23 % (42-52); Hemoglobin 7.6 g/dL (14.0-18.0); Lymphocyte % 5.6 %; Mean Corpuscular HGB Conc 33 g/dL (31-36); Mean Corpuscular Hemoglobin 28 pg (27-31); Mean Corpuscular Volume 85 fL (80-94); Mean Platelet Volume 8.2 fL (7.4-10.4); Nucleated Red Blood Cells % 0.1; Platelet Count 213 10^3/uL (150-450); Red Blood Count 2.74 10^6 /uL (4.18-5.48); Red Cell Distribution Width 18 % (10-15); White Blood Count 5.6 10^3/uL (3.5-10.8)
[2019-12-29 03:45] LABS: BUN/Creatinine Ratio 15.8 (8-20); Calcium 6.9 mg/dL (8.6-10.3); EGFR African American 10.3 (>60); EGFR Non-African American 8.5 (>60); Magnesium 2.5 mg/dL (1.9-2.7); Potassium 3.7 mmol/L (3.5-5.0)
[2019-12-29] MEDS: ZOSYN 3.375 GM Q8H per EXTENDED INFUSION IV SCH ×2 (08:01→21:34)
[2019-12-29] MEDS: Sodium Bicarb 650 mg (ANTACID) TAB PO SCH ×3 (08:05→17:01)
[2019-12-29] MEDS: Aspirin EC 81 mg TAB.EC (enteric coated) PO SCH (08:05)
[2019-12-29] MEDS: Tiotropium Brom/Olodaterol MDI INH SCH (09:11)
[2019-12-29 09:35] LABS: % Iron Saturation 28 % (15-55); Iron 47 ug/dL (50-212); LDH 163 U/L (140-271); Total Iron Binding Capacity 165 mcg/dL (250-450); Transferrin 118 mg/dL (203-362); Unsaturated Iron Binding < 150 ug/dL
[2019-12-29 09:56] LABS: Ferritin 535.2 ng/mL (24-336)
[2019-12-29] MEDS ORDERED: Zosyn 3.375 gm X 1 dose, then dose per Pharmacy IV ONE (12:16)
[2019-12-30] MEDS: Albuterol/Ipratropium NEB.SOL (2.5/0.5 MG) 3 ML NEB.SOLN INH PRN (00:57)
[2019-12-30 06:16] LABS: ABS Eosinophils 0.1 10^3/ul (0-0.6); ABS Lymphocytes 0.4 10^3/ul (1.0-4.8); ABS Monocytes 0.4 10^3/ul (0-0.8); ABS Neutrophils 3.6 10^3/ul (1.5-7.7); Eosinophil % 1.5 %; Hematocrit 23 % (42-52); Hemoglobin 7.6 g/dL (14.0-18.0); Lymphocyte % 8.1 %; Mean Corpuscular HGB Conc 34 g/dL (31-36); Mean Corpuscular Hemoglobin 28 pg (27-31); Mean Corpuscular Volume 84 fL (80-94); Mean Platelet Volume 8.2 fL (7.4-10.4); Platelet Count 184 10^3/uL (150-450); Red Cell Distribution Width 18 % (10-15); White Blood Count 4.5 10^3/uL (3.5-10.8)
[2019-12-30 06:34] LABS: BUN/Creatinine Ratio 16.1 (8-20); Calcium 7.1 mg/dL (8.6-10.3); EGFR African American 10.3 (>60); EGFR Non-African American 8.5 (>60); Magnesium 2.4 mg/dL (1.9-2.7); Potassium 3.7 mmol/L (3.5-5.0)
[2019-12-30] MEDS: ZOSYN 3.375 GM Q8H per EXTENDED INFUSION IV SCH ×2 (08:42→20:59)
[2019-12-30] MEDS: Sodium Bicarb 650 mg (ANTACID) TAB PO SCH ×3 (08:46→16:23)
[2019-12-30] MEDS: Aspirin EC 81 mg TAB.EC (enteric coated) PO SCH (08:47)
[2019-12-30] MEDS: Tiotropium Brom/Olodaterol MDI INH SCH (08:59)
[2019-12-31] MEDS ORDERED: Saline NASAL SPRAY 0.65% BTL BOTH NARES PRN (04:41)
[2019-12-31 05:39] LABS: ABS Eosinophils 0.1 10^3/ul (0-0.6); ABS Lymphocytes 0.3 10^3/ul (1.0-4.8); ABS Monocytes 0.5 10^3/ul (0-0.8); Hematocrit 25 % (42-52); Hemoglobin 8.2 g/dL (14.0-18.0); Lymphocyte % 6.6 %; Mean Corpuscular HGB Conc 33 g/dL (31-36); Mean Corpuscular Hemoglobin 28 pg (27-31); Mean Corpuscular Volume 84 fL (80-94); Mean Platelet Volume 7.7 fL (7.4-10.4); Platelet Count 186 10^3/uL (150-450); Red Blood Count 2.93 10^6 /uL (4.18-5.48); Red Cell Distribution Width 18 % (10-15); White Blood Count 4.9 10^3/uL (3.5-10.8)
[2019-12-31 05:50] LABS: BUN/Creatinine Ratio 17.4 (8-20); Calcium 7.3 mg/dL (8.6-10.3); EGFR Non-African American 10.7 (>60); Potassium 4.2 mmol/L (3.5-5.0)
[2019-12-31] MEDS: Aspirin EC 81 mg TAB.EC (enteric coated) PO SCH (08:14)
[2019-12-31] MEDS: Sodium Bicarb 650 mg (ANTACID) TAB PO SCH ×3 (08:15→16:05)
[2019-12-31] MEDS: ZOSYN 3.375 GM Q8H per EXTENDED INFUSION IV SCH ×2 (08:19→20:34)
[2019-12-31] MEDS: Tiotropium Brom/Olodaterol MDI INH SCH (09:02)
[2019-12-31] MEDS ORDERED: Insulin GLARGINE 100 un/ml 10 ml VIAL SUBCUT SCH (17:00)
[2020-01-01 06:56] LABS: ABS Basophils 0.1 10^3/ul (0-0.2); ABS Eosinophils 0.1 10^3/ul (0-0.6); ABS Lymphocytes 0.3 10^3/ul (1.0-4.8); ABS Monocytes 0.4 10^3/ul (0-0.8); ABS Neutrophils 4.8 10^3/ul (1.5-7.7); Eosinophil % 2.5 %; Hematocrit 25 % (42-52); Hemoglobin 8.5 g/dL (14.0-18.0); Lymphocyte % 5.9 %; Mean Corpuscular HGB Conc 34 g/dL (31-36); Mean Corpuscular Hemoglobin 29 pg (27-31); Mean Corpuscular Volume 84 fL (80-94); Platelet Count 180 10^3/uL (150-450); Red Blood Count 2.95 10^6 /uL (4.18-5.48); Red Cell Distribution Width 18 % (10-15); White Blood Count 5.8 10^3/uL (3.5-10.8)
[2020-01-01 07:21] LABS: BUN/Creatinine Ratio 18.9 (8-20); Calcium 7.6 mg/dL (8.6-10.3); EGFR African American 15.8 (>60); EGFR Non-African American 13.1 (>60); Magnesium 1.8 mg/dL (1.9-2.7); Potassium 4.3 mmol/L (3.5-5.0)
[2020-01-01] MEDS: Tiotropium Brom/Olodaterol MDI INH SCH (07:32)
[2020-01-01] MEDS: Aspirin EC 81 mg TAB.EC (enteric coated) PO SCH (08:44)
[2020-01-01] MEDS: Sodium Bicarb 650 mg (ANTACID) TAB PO SCH ×3 (08:45→16:55)
[2020-01-01] MEDS: ZOSYN 3.375 GM Q8H per EXTENDED INFUSION IV SCH ×2 (08:48→21:20)
[2020-01-01] MEDS: Insulin GLARGINE 100 un/ml 10 ml VIAL SUBCUT SCH (17:25)
[2020-01-02 06:24] LABS: BUN/Creatinine Ratio 18.9 (8-20); Calcium 7.5 mg/dL (8.6-10.3); EGFR African American 18.6 (>60); EGFR Non-African American 15.4 (>60); Potassium 4.5 mmol/L (3.5-5.0)
[2020-01-02 06:57] LABS: ABS Basophils 0.1 10^3/ul (0-0.2); ABS Eosinophils 0.2 10^3/ul (0-0.6); ABS Lymphocytes 0.5 10^3/ul (1.0-4.8); ABS Monocytes 0.4 10^3/ul (0-0.8); Eosinophil % 2.7 %; Hematocrit 24 % (42-52); Hemoglobin 8.2 g/dL (14.0-18.0); Mean Corpuscular HGB Conc 34 g/dL (31-36); Mean Corpuscular Hemoglobin 29 pg (27-31); Mean Corpuscular Volume 85 fL (80-94); Mean Platelet Volume 8.2 fL (7.4-10.4); Platelet Count 191 10^3/uL (150-450); Red Blood Count 2.85 10^6 /uL (4.18-5.48); Red Cell Distribution Width 18 % (10-15); White Blood Count 7.1 10^3/uL (3.5-10.8)
[2020-01-02] MEDS: Sodium Bicarb 650 mg (ANTACID) TAB PO SCH ×3 (08:38→17:16)
[2020-01-02] MEDS: ZOSYN 3.375 GM Q8H per EXTENDED INFUSION IV SCH (08:38)
[2020-01-02] MEDS: Aspirin EC 81 mg TAB.EC (enteric coated) PO SCH (08:39)
[2020-01-02] MEDS: Tiotropium Brom/Olodaterol MDI INH SCH (08:40)
[2020-01-02] MEDS ORDERED: Ondansetron 4 mg VIAL 2 MG/ML 2 ml VIAL IV PRN (10:54)
[2020-01-02 14:58] LABS: Hematocrit 23 % (42-52); Hemoglobin 7.7 g/dL (14.0-18.0)
[2020-01-02] MEDS: Insulin GLARGINE 100 un/ml 10 ml VIAL SUBCUT SCH (17:17)
[2020-01-03 07:20] LABS: ABS Basophils 0.1 10^3/ul (0-0.2); ABS Eosinophils 0.2 10^3/ul (0-0.6); ABS Lymphocytes 0.5 10^3/ul (1.0-4.8); ABS Monocytes 0.4 10^3/ul (0-0.8); ABS Neutrophils 8.3 10^3/ul (1.5-7.7); Eosinophil % 1.7 %; Hematocrit 22 % (42-52); Hemoglobin 7.5 g/dL (14.0-18.0); Lymphocyte % 5.5 %; Mean Corpuscular HGB Conc 34 g/dL (31-36); Mean Corpuscular Hemoglobin 29 pg (27-31); Mean Corpuscular Volume 84 fL (80-94); Platelet Count 187 10^3/uL (150-450); Red Blood Count 2.62 10^6 /uL (4.18-5.48); Red Cell Distribution Width 18 % (10-15); White Blood Count 9.5 10^3/uL (3.5-10.8)
[2020-01-03 07:36] LABS: BUN/Creatinine Ratio 17.9 (8-20); Calcium 7.8 mg/dL (8.6-10.3); EGFR African American 21.8 (>60)
[2020-01-03 07:40] LABS: Potassium 5.1 mmol/L (3.5-5.0)
[2020-01-03] MEDS: Tiotropium Brom/Olodaterol MDI INH SCH (08:47)
[2020-01-03] MEDS: Aspirin EC 81 mg TAB.EC (enteric coated) PO SCH (09:45)
[2020-01-03] MEDS: Sodium Bicarb 650 mg (ANTACID) TAB PO SCH ×3 (09:46→16:22)
[2020-01-03] MEDS ORDERED: Insulin GLARGINE 100 un/ml 10 ml VIAL SUBCUT SCH (17:00)
[2020-01-03 17:47] LABS: Troponin I 0.26 ng/mL (<0.03)
[2020-01-03 22:23] LABS: Hematocrit 23 % (42-52); Hemoglobin 7.7 g/dL (14.0-18.0)
[2020-01-03 22:48] LABS: Troponin I 0.57 ng/mL (<0.03)
[2020-01-03 23:40] LABS: Urine Color Red
[2020-01-03 23:43] LABS: Urine Appearance Turbid; Urine Red Blood Cell 3+(>10/hpf) (Absent); Urine White Blood Cell 3+(>20/hpf) (Absent)
[2020-01-04 01:59] LABS: Troponin I 0.72 ng/mL (<0.03)
[2020-01-04 07:46] LABS: ABS Basophils 0.1 10^3/ul (0-0.2); ABS Eosinophils 0.2 10^3/ul (0-0.6); ABS Lymphocytes 0.6 10^3/ul (1.0-4.8); ABS Monocytes 0.5 10^3/ul (0-0.8); ABS Neutrophils 8.5 10^3/ul (1.5-7.7); Eosinophil % 1.8 %; Hematocrit 22 % (42-52); Hemoglobin 7.5 g/dL (14.0-18.0); Lymphocyte % 5.7 %; Mean Corpuscular HGB Conc 35 g/dL (31-36); Mean Corpuscular Hemoglobin 30 pg (27-31); Mean Corpuscular Volume 86 fL (80-94); Mean Platelet Volume 8.2 fL (7.4-10.4); Nucleated Red Blood Cells % 0.1; Platelet Count 196 10^3/uL (150-450); Red Blood Count 2.52 10^6 /uL (4.18-5.48); Red Cell Distribution Width 18 % (10-15); White Blood Count 9.8 10^3/uL (3.5-10.8)
[2020-01-04 08:02] LABS: BUN/Creatinine Ratio 18.1 (8-20); Blood Urea Nitrogen 55 mg/dL (6-24); CO2 Carbon Dioxide 22 mmol/L (22-32); Calcium 7.9 mg/dL (8.6-10.3); Chloride 108 mmol/L (101-111); EGFR African American 24.8 (>60); EGFR Non-African American 20.5 (>60); Glucose 231 mg/dL (70-100); Sodium 139 mmol/L (135-145)
[2020-01-04 08:04] LABS: Anion Gap 9 mmol/L (2-11); Potassium 5.5 mmol/L (3.5-5.0)
[2020-01-04 08:05] LABS: Troponin I 0.64 ng/mL (<0.03)
[2020-01-04] MEDS: Sodium Bicarb 650 mg (ANTACID) TAB PO SCH ×2 (08:22→11:46)
[2020-01-04] MEDS: Aspirin EC 81 mg TAB.EC (enteric coated) PO SCH (08:22)
[2020-01-04] MEDS: Tiotropium Brom/Olodaterol MDI INH SCH (08:49)
[2020-01-04 13:59] VITALS: BP 127/54
[2020-01-05 22:18] LABS: Kappa Free Light Chain 14.7 mg/dL
[2020-01-06 13:42] LABS: Albumin 2.2 g/dL (3.4-4.7); Albumin/Globulin Ratio 0.61; Gamma Globulin 1.1 g/dL (0.6-1.6); Total Protein(PEP) 5.8 g/dL (6.3 - 7.9)
== END 2020-01-04 14:55 | disposition short-term general hospital (02) | DRG 682 ==
LOC: ED 21:22 → MEDTELE 12-28 07:04
PROVIDERS: ADMIT Internal Medicine; ATTEND Student in an Organized Health Care Education/Training Program